=== PATIENT | male | born 1955 | race Caucasian/White ===

== ENCOUNTER → 2016-08-16 | Outpatient (CLI) | payer OTHER ==
--- NOTE | 2016-08-16 17:02 | CT ---
EXAMINATION TYPE: CT angio abd aorta wo/w con DATE OF EXAM: 08/16/2016 1:18 PM COMPARISON: 05/03/2016 INDICATION: Patient is following up on abdominal aortic aneurysm that also followed with an aneurysm into iliac artery as well DLP: 1806 mGycm, Automated exposure control for dose reduction was used. CONTRAST: 100 mL of Omnipaque 350. Study performed without Oral Contrast TECHNIQUE: Axial images were obtained from above the diaphragm to the pubic rami in the axial plane a t 5 mm thick sections. Reconstructed images are reviewed on the computer in the coronal plane. Thre e-D reconstructed images performed separately on the ventricular computer by the technologist are cee med and presented. FINDINGS: Limited CT sections are obtained the lung bases. The lung bases are clear. CT ABDOMEN: Tiny is performed for evaluation of the aorta with contrast. Aorta: Vascular calcification is present. Some some plaque is along the posterior aortic wall within the proximal portion. There is a mid abdominal aorta aneurysm with an AP dimension of 4.6 cm. Central flow-limiting somewhat smaller. This extends to the aortic bifurcation. There is a focal aneurysm of the mid to distal right common iliac artery with a transverse dimension of 2.4 cm. Some mild fusiform prominence of the left common iliac artery at the bifurcation is 1.8 cm . Liver: Normal Spleen: Normal Pancreas: Normal Adrenal glands: The adrenal glands are normal. Gallbladder: Normal Kidneys: No masses are evident. No hydronephrosis is present. No cysts are present. Inferior vena cava: Normal. Loops of bowel within the abdomen and pelvis are unremarkable. There are loops of bowel lacking oral contrast or with limited distention limiting their evaluation. IMPRESSIONS: 1. Abdominal aortic aneurysm with the greatest AP dimension of 4.6 cm. This is increased from 4.1 cm April 2016.
== END | disposition home or self-care (01) ==
LOC: RADCTMAIN 10:52
PROVIDERS: ATTEND Family Medicine
DX: I71.4 Abdominal aortic aneurysm, without rupture (principal)
CPT/HCPCS: 75635; Q9967

== ENCOUNTER → 2016-11-16 | Outpatient (CLI) | payer OTHER ==
--- NOTE | 2016-11-16 17:33 | MR ---
EXAMINATION TYPE: MR lumbar spine wo con DATE OF EXAM: 11/16/2016 COMPARISON: NONE HISTORY: Low back pain, Clarence leg pain TECHNIQUE: T1 and T2 axial and sagittal images of the lumbar spine are submitted. FINDINGS: There is no abnormal signal seen within the visualized spinal cord or paraspinal soft tissu es. At L1-2 there is moderate degenerative disc disease. No focal herniation or canal stenosis. Small eliud tebral body hemangioma L1 and L2. Neural foramina patent. Minimal central disc bulging. At L2-3 there is no disc herniation or canal stenosis. No foraminal encroachment At L3-4 there is mild degenerative disc disease. No canal stenosis or foraminal encroachment. At L4-5 there is facet arthropathy and ligamentum flavum hypertrophy. Mild bilateral foraminal encroa chment and mild effacement of thecal sac secondary to mild broad-based disc bulging. No canal stenosi s. At L5-S1 there is facet arthropathy with mild bilateral foraminal encroachment. Mild flattening of th e thecal sac anteriorly due to disc bulging. No canal stenosis. Incidental note made of Tarlov cyst a t the S2 level. There is no abdominal aortic aneurysm with extension into the iliac artery which is been previously r eported maximal dimension estimated at 4.6 cm IMPRESSION: 1. Multilevel mild to moderate degenerative disc disease and disc bulging with no evidence of canal 2. Previously reported 4.6 cm abdominal aortic aneurysm with extension into the right iliac artery
== END | disposition home or self-care (01) ==
LOC: RADMRIMAIN 16:07
PROVIDERS: ATTEND Family Medicine
DX: M51.36 Other intervertebral disc degeneration, lumbar region (principal); M51.26 Other intervertebral disc displacement, lumbar region
CPT/HCPCS: 72148

== ENCOUNTER 2017-06-01 06:58 | Day surgery (SDC) | payer OTHER ==
[2017-05-30 11:59] VITALS: BMI 30.5
[~2017-06-01 06:58] MED LIST: LACTATED RINGERS 1,000 ML IV SCH
[2017-06-01 07:17] VITALS: RESP 14; TEMP 97.7
[2017-06-01] MEDS ORDERED: PROPOFOL 10 MG/ML 20 ML VIAL IV ONE (07:35)
[2017-06-01] MEDS ORDERED: LIDOCAINE 1% INJ 10MG/ML (20 ML MDV) ONE (07:35)
--- NOTE | 2017-06-01 07:50 | P.GSHP ---
History of Present Illness H&P Date: 06/01/17 Chief Complaint: Screening colonoscopy This is a 61-year-old male referred from Dr. Luda stout. Patient presents today for screening colonoscopy. His last colonoscopy approximately 11 years ago. He denies any significant GI complaints. Past Medical History Past Medical History: Asthma, GERD/Reflux, Hyperlipidemia, Hypertension, Prostate Disorder, Sleep Apnea/CPAP/BIPAP Additional Past Medical History / Comment(s): NO CPAP. ABD ANEURYSM. History of Any Multi-Drug Resistant Organisms: None Reported Past Surgical History: Hernia Repair, Orthopedic Surgery Additional Past Surgical History / Comment(s): RIGHT ROTATOR CUFF X 2. Past Anesthesia/Blood Transfusion Reactions: No Reported Reaction Additional Past Anesthesia/Blood Transfusion Reaction / Comment(s): claustrophobic Smoking Status: Current every day smoker - Past Family History Father Family Medical History: Cancer Additional Family Medical History / Comment(s): mesothelioma Medications and Allergies Home Medications Medication Instructions Recorded Confirmed Type Finasteride [Finasteride] 5 mg PO DAILY 03/25/16 06/01/17 History Fluticasone/Vilanterol [Breo 1 puff INHALATION RT-DAILY PRN 03/25/16 06/01/17 History Ellipta 100-25 Mcg Iinhaler] Omeprazole 20 mg PO DAILY 03/25/16 06/01/17 History amLODIPine BESYLATE [Amlodipine 5 mg PO DAILY 03/25/16 06/01/17 History Besylate] buPROPion HCL [buPROPion HCL XL] 150 mg PO HS 03/25/16 06/01/17 History Clopidogrel [Plavix] 75 mg PO MOTH 05/30/17 06/01/17 History Oxybutynin Chloride [Ditropan XL] 10 mg PO HS 05/30/17 06/01/17 History Pramipexole [Mirapex] 0.25 mg PO HS 05/30/17 06/01/17 History Tamsulosin [Flomax] 0.4 mg PO HS 05/30/17 06/01/17 History Allergies Allergy/AdvReac Type Severity Reaction Status Date / Time ibuprofen [From Motrin] Allergy Rapid Verified 05/30/17 11:43 Heart Rate levofloxacin [From Levaquin] Allergy Unknown Verified 05/30/17 11:43 Surgical - Exam Vital Signs Temp Pulse Resp BP Pulse Ox 97.7 F 76 14 150/82 97 06/01/17 07:16 06/01/17 07:16 06/01/17 07:16 06/01/17 07:16 06/01/17 07:16 - General well developed, no distress - Eyes PERRL - ENT normal pinna - Neck no masses - Respiratory normal expansion - Cardiovascular Rhythm: regular - Abdomen Abdomen: soft, non tender Assessment and Plan Assessment: We'll perform screening colonoscopy.
--- NOTE | 2017-06-01 08:04 | P.OP ---
Date of Procedure: 06/01/17 Preoperative Diagnosis: Screening colonoscopy Postoperative Diagnosis: Rectal polyp Right colon polyp Anesthesia: MAC Surgeon: Nicko Gallagher Pathology: other (Rectal polyp, right colon polyp) Condition: stable Disposition: PACU Description of Procedure: Patient's placed on the endoscopy table in the lateral position. He received IV sedation. Digital rectal exam performed which revealed a external hemorrhoids. The prostate was symmetrical without nodules. Flexible colonoscope was then placed patient anus passed throughout the entire colon. The ileocecal valve was visualized. The cecum appeared normal. In the right colon there was a small sessile polyp was removed the forcep. The remainder the ascending colon, transverse colon descending colon and sigmoid colon appeared normal. Scope was then brought back the rectum and another polyp seen this removed the forcep. Scope was withdrawn for patient.
[2017-06-01 08:23] VITALS: BP 151/87; PULSE 63
--- NOTE | 2017-06-07 15:20 | CDI ---
Date: 06/07/17 CDS/Contract Administration Coordinator Name: Che Genao Phone: If you have question, contact Arti Chavez, [employer] at [phone] M-F 8:30 am to 6pm. Patient Name: Julio César Wade Admit Date: 06/01/17 Discharge Date: 06/01/17 ATTENTION: The Clinical Documentation Specialists (CDI) and [facility] Coding Staff appreciate your assistance in clarifying documentation. Please respond to the clarification below the line at the bottom and electronically sign. The CDI & [facility] Coding staff will review the response and follow-up if needed. Please note: Queries are made part of the Legal Health Record. If you have any questions, please contact the author of this message via ITS or call the [employer]. Dr. Gallagher, Please provide clarification as to whether the polyps was removed with cold or hot forceps. Thank you for your assistance. Cold forcep MTDD
== END 2017-06-01 08:44 | disposition home or self-care (01) ==
LOC: ORWHC2ENDO 06:58
PROVIDERS: ATTEND Surgery
DX: Z12.11 Encounter for screening for malignant neoplasm of colon (principal); D12.2 Benign neoplasm of ascending colon; K62.1 Rectal polyp; K21.9 Gastro-esophageal reflux disease without esophagitis; F17.200 Nicotine dependence, unspecified, uncomplicated; E78.5 Hyperlipidemia, unspecified; I10 Essential (primary) hypertension; G47.30 Sleep apnea, unspecified; N42.9 Disorder of prostate, unspecified; J44.9 Chronic obstructive pulmonary disease, unspecified; I71.4 Abdominal aortic aneurysm, without rupture; Z79.02 Long term (current) use of antithrombotics/antiplatelets; Z79.899 Other long term (current) drug therapy; Z88.6 Allergy status to analgesic agent; Z88.1 Allergy status to other antibiotic agents
CPT/HCPCS: 88305; 45380; J2001; J2704

== ENCOUNTER → 2018-03-06 | Outpatient (CLI) | payer BC ==
--- NOTE | 2018-03-06 15:14 | CT ---
EXAMINATION TYPE: CT angio abd aorta w/Runoff DATE OF EXAM: 03/06/2018 COMPARISON: CTA August 16, 2016 HISTORY: abdominal aortic aneurysm CT DLP: 1332 mGycm, Automated Exposure Control for Dose Reduction was Utilized. CONTRAST: CTA scan of the abdomen and pelvis is performed without oral and with IV Contrast, patient injected w ith 100mL mL of Isovue 370. Three-D reconstructed images are created on independent workstation and r eviewed FINDINGS: VASCULAR: There is enlarging aneurysm of the infrarenal abdominal aorta without common iliac artery extension measuring roughly just over 10 cm in length coronal image 61. Aneurysm measures up to 5.1 c m AP diameter axial image 49 and 5.1 cm transversely just superior to this axial image 45. Largest an eurysm I obtain prior study is 4.4 cm. There is increasing mural thrombus or noncalcified plaque now causing greater than 50% occlusion of the aneurysm. There is persistent patency of the JEAN through t he noncalcified plaque axial image 49. There is persistent fairly moderate plaque in the SMA not caus ing greater than 50% stenosis. Focal severe plaque at celiac axis origin appears to cause stenosis ju st over 50% sagittal image 90. There is moderate plaque at renal artery origin, focal vertical dissec tion proximal right renal artery coronal image 71 is not changed from prior study as there is vertica l hypodensity seen. There is moderate to severe mixed plaque in the common iliac arteries bilaterally. There is aneurysm the distal right common iliac artery measuring up to 2.7 cm in size axial image 63 increased from pr ior. Moderate to severe noncalcified plaque is noted. There is satisfactory bifurcation into internal /external iliac arteries bilaterally with severe calcified plaque in the internal carotid arteries bi laterally without significant stenosis seen. There is more mild calcified plaque in axial iliac arter ies. There is more moderate calcified plaque at common femoral artery bilaterally. There is bifurcati on into superficial and deep femoral arteries with mild calcified plaque. No significant stenosis is seen in either groin. LUNG BASES: No significant abnormality is appreciated. LIVER/GB: Stable nonspecific subcentimeter hypodense lesion right hepatic lobe near gallbladder axial image 26 is favored benign. PANCREAS: No significant abnormality is seen. SPLEEN: No significant abnormality is seen. ADRENALS: No significant abnormality is seen. KIDNEYS: No significant abnormality is seen. BOWEL: Normal-appearing appendix is incidentally seen from cecum. PROSTATE/SEMINAL VESICLES: Left central calcifications are seen in prostate gland upper limits of nor mal in size. LYMPH NODES: No greater than 1cm abdominal or pelvic lymph nodes are appreciated. OSSEOUS STRUCTURES: There is mild to moderate multilevel spurring in the thoracic spine. OTHER: No significant additional abnormality is seen. IMPRESSION: Enlarging infrarenal abdominal aortic aneurysm measuring up to 5.1 cm on current study. I ncreasing intraluminal mural thrombus noted. Significant stenosis at celiac axis origin just over 50% is felt present not significantly changed from prior. Severe focal calcified plaque or focal dissect ion proximal right renal artery is redemonstrated. 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 Consider stent graft placement.
== END | disposition home or self-care (01) ==
LOC: RADCTMAIN 13:32
PROVIDERS: ATTEND Surgery
DX: I71.4 Abdominal aortic aneurysm, without rupture (principal); I72.3 Aneurysm of iliac artery
CPT/HCPCS: 75635

== ENCOUNTER → 2018-05-07 | Outpatient (CLI) | payer BC ==
--- NOTE | 2018-05-07 14:48 | CT ---
EXAMINATION TYPE: CT angio abdomen pelvis DATE OF EXAM: 05/07/2018 COMPARISON: 03/06/2018 HISTORY: 62-year-old male Follow up stent placement. TECHNIQUE: Contiguous axial scanning of the abdomen and pelvis before and after administration of 100 ml Isovue 370 IV contrast. Additional delayed images through the stent graft with coronal/sagittal MIP reconstructions performed. 3-D reconstructions generated on a dedicated independent workstation. CT DLP: 2758 mGycm Automated exposure control for dose reduction was used. FINDINGS: Heart normal size without pericardial effusion. Strandy areas of atelectasis at the lung bases withou t pleural effusion. Subcentimeter hypodensity inferior mid left liver lobe unchanged and too small for accurate CT charac terization, likely cyst. Gallbladder, adrenal glands, kidneys, spleen, and pancreas show no gross abnormality. Redemonstrated moderate atherosclerotic narrowing at the origin of the celiac axis. There is a replaced common hepatic artery from the SMA. Stable focal linear density within the proximal right renal artery, refer to coronal series 12 image 79. Interval placement of aortobiiliac stent graft. There is extension on the right to include the right internal iliac artery. [place] sac currently measures 5.0 x 4.9 cm versus 5.1 x 5.0 cm, previously. The [place] sac for the stented distal right common carotid artery measures 2.2 cm versus 2.7 cm, prev iously. Stented distal left common iliac artery measures 2.0 cm, unchanged. No abnormal attenuation of contrast seen within the [place] sac. No dilated small bowel, free fluid, or free air No mesenteric or retroperitoneal lymphadenopathy. Normal appendix. Mild stool in the right side of th e abdomen and in the distal sigmoid and rectum. Mild diverticular change along the lower descending colon. Bladder partially distended. Prostatic calcifications. No abnormal fluid collection the pelvis or pel matthew lymphadenopathy seen. Bones: Subarticular sclerosis at the SI joints suggesting underlying degenerative change. No osseous destructive process. IMPRESSION: 1. INTERVAL AORTOBIILIAC STENT GRAFT PLACEMENT. ON THE RIGHT, STENT GRAFT EXTENDS TO INCLUDE THE RIGH T INTERNAL ILIAC ARTERY. 2. [place] SAC IS STABLE TO SLIGHTLY SMALLER AT 5.0 X 4.9 CM (VERSUS 5.1 X 5.0 CM, PREVIOUSLY). NO KHURRAM DENCE FOR ENDOLEAK. 2. THE STENTED RIGHT COMMON ILIAC ARTERY [place] SAC IS SMALLER AT 2.2 CM VERSUS 2.7 CM, PREVIOUSLY. 3. 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 4. STABLE LINEAR FILLING DEFECT INVOLVING THE PROXIMAL RIGHT RENAL ARTERY WHICH COULD REPRESENT A SMA LL FOCAL DISSECTION OR WEB RELATING TO PRIOR CLOT.
== END | disposition home or self-care (01) ==
LOC: RADCTMAIN 11:02
PROVIDERS: ATTEND Surgery
DX: I77.4 Celiac artery compression syndrome (principal); I77.89 Other specified disorders of arteries and arterioles; Z95.828 Presence of other vascular implants and grafts
CPT/HCPCS: 74174; Q9967

== ENCOUNTER → 2019-04-18 | Outpatient (CLI) | payer BC ==
[~2019-04-18] MED LIST changes: -LACTATED RINGERS 1,000 ML IV SCH; +REGADENOSON 0.4 MG/5 ML SYRINGE IV ONE
--- NOTE | 2019-04-18 12:36 | NM ---
EXAMINATION TYPE: NM stress lexiscan cardiolite DATE OF EXAM: 04/18/2019 COMPARISON: NONE HISTORY: Chest pain TECHNIQUE: After the intravenous administration of 10.06 mCi Tc 99m Sestamibi - Cardiolite resting S PECT images acquired 45 minutes post injection. The patient received 0.4mg Lexiscan, 23.9 mCi Tc 99m Sestamibi - Stress images obtained [address] injection FINDINGS: Review of stress and rest SPECT images demonstrates mild decreased rate pharmaceutical uptake along t he inferior wall left ventricle towards the base of the heart at stress as compared to rest images. Gated analysis shows normal wall motion with an estimated left ventricular ejection fraction of 55 %. IMPRESSION: Pharmacologically induced left ventricular myocardial ischemia. A Yellow level critical message alert has been initiated for Luda Garcia DO via the [employer] Critical Results System on 04/18/2019 12:33 PM. This message alert has been sent to Luda Garcia DO via the preferences provided by the clinician for the receipt of Radiology Critical Findings. PrintToPeer e ID [id number].
--- NOTE | 2019-04-18 13:29 | EST ---
EXERCISE STRESS DATE OF SERVICE: April 18, 2019 AGE: 63 SEX: Male HT: 72" WT: 205 pounds PROTOCOL: Lexiscan Cardiolite STAGE: DURATION OF EXERCISE: HEART RATE REST: 64 BLOOD PRESSURE REST: 129/77 MAXIMUM HEART RATE ACHIEVED: 100 MAXIMUM BLOOD PRESSURE: 133/81 85% MPHR: 100% MPHR: METS: INDICATIONS: Chest pain. CLINICAL INFORMATION: STRESS DATA: Heart rate 64, pressure is 129/77 mmHg. Baseline EKG showed sinus mechanism. A 0.4 mg of Lexiscan given over 15 seconds per protocol. Max heart rate was 100 beats per minute. Maximum pressure was 133/81 mmHg. Clinically the patient did not have any symptoms of chest pain or chest discomfort and the EKG did not show any significant ST or T-wave abnormalities concerning for ischemia. CONCLUSION: 1. Nondiagnostic electrocardiogram stress testing in response to Lexiscan. 2. Please follow up on the Cardiolite portion on separate report from radiology department. MMODL / IJN: [id number] /
== END | disposition home or self-care (01) ==
LOC: RADNMMAIN 07:58
PROVIDERS: ATTEND Family Medicine
DX: I20.9 Angina pectoris, unspecified (principal); I25.9 Chronic ischemic heart disease, unspecified; R07.9 Chest pain, unspecified
CPT/HCPCS: 93017; 78452; A9500; J2785

== ENCOUNTER → 2019-07-06 | Outpatient (CLI) | payer BC ==
--- NOTE | 2019-07-07 12:30 | CTL ---
EXAMINATION TYPE: CT Low Dose Lung DATE OF EXAM ORDERED: 07/06/2019 HISTORY: Personal history tobacco use. Lung cancer screening CT DLP: 131.[address] CTDI: 3.3 mGy Automated exposure control for dose reduction was used. SCREENING VISIT: 1 COMPARISON: CT chest 01/25/2012 TECHNIQUE: Low dose computed tomography scan was performed through the chest at 1 mm thick sections a nd reconstructed images in the coronal plane at [address] DIAGNOSTIC QUALITY: Satisfactory FINDINGS: LUNG NODULES: None. LUNGS: COPD: Severity: Mild Fibrosis: Severity: None Lymph nodes: None Other findings: Mild central bronchiectasis RIGHT PLEURAL SPACE: Effusion: None Calcification: None Thickening: None Pneumothorax: None LEFT PLEURAL SPACE: Effusion: None Calcification: None Thickening: None Pneumothorax: None HEART: Heart Size: Small Coronary calcification: Extensive Pericardial effusion: None OTHER FINDINGS: Upper abdomen: Unremarkable Bony thorax: There is spondylosis present Supraclavicular region: Unremarkable Other: IMPRESSION: Negative FOLLOW UP CT CHEST RECOMMENDATION: [address] LUNG RAD: 1
== END | disposition home or self-care (01) ==
LOC: RADCTMAIN 07:42
PROVIDERS: ATTEND Family Medicine
DX: Z12.2 Encounter for screening for malignant neoplasm of respiratory organs (principal); F17.210 Nicotine dependence, cigarettes, uncomplicated

== ENCOUNTER → 2020-12-04 | Outpatient (CLI) | payer BC ==
--- NOTE | 2020-12-04 11:46 | FL ---
EXAMINATION TYPE: FL barium swallow DATE OF EXAM: 12/04/2020 CLINICAL HISTORY: Dysphagia, additional history of Parkinson's TECHNIQUE: A double contrast esophagram is performed utilizing air and barium. A total of 43 second s of fluoroscopic time was utilized during procedure and 49 images obtained. COMPARISON: None FINDINGS: The esophagus shows normal motility and emptying into the stomach. No evidence of hiatal h ernia or stricture noted. No significant gastroesophageal reflux was seen during real time performanc e of this study. IMPRESSION: No significant abnormality is seen to account for patient's symptoms.
== END | disposition home or self-care (01) ==
LOC: RADUSWWP 10:48
PROVIDERS: ATTEND Family Medicine
DX: R13.10 Dysphagia, unspecified (principal)
CPT/HCPCS: 74220

== ENCOUNTER 2022-03-31 10:52 | Inpatient (IN) | payer BC, MEDICARE ==
[2022-03-31] MEDS ORDERED: NITROGLYCERIN OINT 1 INCH/GM PACKET TOPICAL STA (11:14)
[2022-03-31] MEDS ORDERED: ASPIRIN 81 MG PO STA (11:14)
--- NOTE | 2022-03-31 11:17 | ED ---
General Adult HPI - General Chief complaint: Chest Pain Stated complaint: Chest Pain,SOB Time Seen by Provider: 03/31/22 11:00 Source: patient, RN notes reviewed, old records reviewed Mode of arrival: ambulatory Limitations: no limitations - History of Present Illness Initial comments: This is a 66-year-old male presents emergency Department with a past medical history significant for diabetes hypertension high cholesterol and a smoking history however he did quit in September. Patient comes in today because for about the last 2 hours he has been having chest pain does not radiate anywhere. Patient describes the pain as a pressure or heaviness. Patient states that he also is very short of breath which is his main complaint. Patient states he's h ad no nausea or vomiting but he has had diarrhea for the last 3 days. Patient denies any abdominal pain. Patient denies any diaphoretic episodes. Patient denies any previous history of heart attack or stent placement. Patient denies any swelling to the legs or calf tenderness. Patient denies any recent fever chills or cough. - Related Data Home Medications Medication Instructions Recorded Confirmed buPROPion HCL [buPROPion HCL XL] 150 mg PO DAILY 03/25/16 03/31/22 Clopidogrel [Plavix] 75 mg PO MOTH 05/30/17 03/31/22 Oxybutynin Chloride [Ditropan XL] 10 mg PO DAILY 05/30/17 03/31/22 Tamsulosin [Flomax] 0.4 mg PO DAILY 05/30/17 03/31/22 Pantoprazole Sodium [Protonix] 40 mg PO BID 03/31/22 03/31/22 Propranolol HCl [Propranolol HCl 80 mg PO DAILY 03/31/22 03/31/22 ER] lisinopriL [Prinivil] 20 mg PO BID 03/31/22 03/31/22 metFORMIN HCL 500 mg PO HS 03/31/22 03/31/22 rOPINIRole HCL [Requip XL] 2 mg PO HS 03/31/22 03/31/22 Allergies Allergy/AdvReac Type Severity Reaction Status Date / Time levofloxacin [From Levaquin] Allergy Rash/Hives Verified 03/31/22 13:13 ibuprofen [From Motrin] AdvReac Rapid Verified 03/31/22 13:13 Heart Rate Review of Systems ROS Statement: Those systems with pertinent positive or pertinent negative responses have been documented in the HPI. ROS Other: All systems not noted in ROS Statement are negative. Past Medical History Past Medical History: Asthma, GERD/Reflux, Hyperlipidemia, Hypertension, Prostate Disorder, Sleep Apnea/CPAP/BIPAP Additional Past Medical History / Comment(s): NO CPAP. ABD ANEURYSM. History of Any Multi-Drug Resistant Organisms: None Reported Past Surgical History: Hernia Repair, Orthopedic Surgery Additional Past Surgical History / Comment(s): RIGHT ROTATOR CUFF X 2. Deep brain stimulator, Cardiac stents, Past Anesthesia/Blood Transfusion Reactions: No Reported Reaction Additional Past Anesthesia/Blood Transfusion Reaction / Comment(s): claustrophobic Past Psychological History: No Psychological Hx Reported Smoking Status: Former smoker Past Alcohol Use History: None Reported Past Drug Use History: None Reported - Past Family History Father Family Medical History: Cancer Additional Family Medical History / Comment(s): mesothelioma General Exam - General Exam Comments Initial Comments: GENERAL: Patient is well-developed and well-nourished. Patient is nontoxic and well- hydrated and is in mild distress. ENT: Neck is soft and supple. No significant lymphadenopathy is noted. Oropharynx is clear. Moist mucous membranes. Neck has full range of motion without eliciting any pain. EYES: The sclera were anicteric and conjunctiva were pink and moist. Extraocular movements were intact and pupils were equal round and reactive to light. Eyelids were unremarkable. PULMONARY: Unlabored respirations. Good breath sounds bilaterally. No audible rales rhonchi or wheezing was noted. CARDIOVASCULAR: There is a regular rate and rhythm without any murmurs gallops or rubs. ABDOMEN: Soft and nontender with normal bowel sounds. SKIN: Skin is clear with no lesions or rashes and otherwise unremarkable. NEUROLOGIC: Patient is alert and oriented x3. Cranial nerves II through XII are grossly intact. Motor and sensory are also intact. Normal speech, volume and content. Symmetrical smile. MUSCULOSKELETAL: Normal extremities with adequate strength and full range of motion. LYMPHATICS: No significant lymphadenopathy is noted PSYCHIATRIC: Normal psychiatric evaluation. Limitations: no limitations Course Vital Signs 03/31/22 03/31/22 03/31/22 10:56 11:35 12:00 Temperature 97.8 F Pulse Rate 9 L 80 73 Respiratory 18 18 Rate Blood Pressure 159/100 176/97 155/96 O2 Sat by Pulse 97 96 97 Oximetry 03/31/22 13:00 Temperature Pulse Rate 72 Respiratory Rate Blood Pressure 153/84 O2 Sat by Pulse 97 Oximetry Medical Decision Making - Medical Decision Making EKG shows sinus rhythm at 83 bpm MT interval 260 QRS is 145 Q-T intervals 393 QTC is 433. Patient's EKG has baseline noise secondary to the patient's stimulator. Chest x-ray shows no acute normalities. New. Patient's magnesium was 1.3 so I replaced with 2 g of magnesium. I spoke with Dr. Workman's about agreed to admit the patient admitted the patient I consult cardiology. - Lab Data Result diagrams: 03/31/22 11:25 03/31/22 11:25 Lab Results 03/31/22 03/31/22 03/31/22 Range/Units 11:25 11:25 11:25 WBC 7.1 (3.8-10.6) k/uL RBC 4.00 L (4.30-5.90) m/uL Hgb 12.8 L (13.0-17.5) gm/dL Hct 35.9 L (39.0-53.0) % MCV 89.7 (80.0-100.0) fL MCH 32.0 (25.0-35.0) pg MCHC 35.7 (31.0-37.0) g/dL RDW 13.2 (11.5-15.5) % Plt Count 184 (150-450) k/uL MPV 7.9 Neutrophils % 67 % Lymphocytes % 19 % Monocytes % 7 % Eosinophils % 4 % Basophils % 1 % Neutrophils # 4.7 (1.3-7.7) k/uL Lymphocytes # 1.4 (1.0-4.8) k/uL Monocytes # 0.5 (0-1.0) k/uL Eosinophils # 0.3 (0-0.7) k/uL Basophils # 0.1 (0-0.2) k/uL PT 11.0 (9.0-12.0) sec INR 1.0 (<1.2) APTT 20.8 L (22.0-30.0) sec Sodium 139 (137-145) mmol/L Potassium 4.2 (3.5-5.1) mmol/L Chloride 103 (98-107) mmol/L Carbon Dioxide 23 (22-30) mmol/L Anion Gap 13 mmol/L BUN 24 H (9-20) mg/dL Creatinine 1.21 (0.66-1.25) mg/dL Est GFR (CKD-EPI)AfAm 72 (>60 ml/min/1.73 sqM) Est GFR (CKD-EPI)NonAf 63 (>60 ml/min/1.73 sqM) Glucose 260 H (74-99) mg/dL Calcium 9.1 (8.4-10.2) mg/dL Magnesium 1.3 L (1.6-2.3) mg/dL Total Bilirubin 0.6 (0.2-1.3) mg/dL AST 25 (17-59) U/L ALT 30 (4-49) U/L Alkaline Phosphatase 70 (38-126) U/L Troponin I (0.000-0.034) ng/mL NT-Pro-B Natriuret Pep pg/mL Total Protein 6.5 (6.3-8.2) g/dL Albumin 4.1 (3.5-5.0) g/dL 03/31/22 03/31/22 Range/Units 11:25 11:25 WBC (3.8-10.6) k/uL RBC (4.30-5.90) m/uL Hgb (13.0-17.5) gm/dL Hct (39.0-53.0) % MCV (80.0-100.0) fL MCH (25.0-35.0) pg MCHC (31.0-37.0) g/dL RDW (11.5-15.5) % Plt Count (150-450) k/uL MPV Neutrophils % % Lymphocytes % % Monocytes % % Eosinophils % % Basophils % % Neutrophils # (1.3-7.7) k/uL Lymphocytes # (1.0-4.8) k/uL Monocytes # (0-1.0) k/uL Eosinophils # (0-0.7) k/uL Basophils # (0-0.2) k/uL PT (9.0-12.0) sec INR (<1.2) APTT (22.0-30.0) sec Sodium (137-145) mmol/L Potassium (3.5-5.1) mmol/L Chloride (98-107) mmol/L Carbon Dioxide (22-30) mmol/L Anion Gap mmol/L BUN (9-20) mg/dL Creatinine (0.66-1.25) mg/dL Est GFR (CKD-EPI)AfAm (>60 ml/min/1.73 sqM) Est GFR (CKD-EPI)NonAf (>60 ml/min/1.73 sqM) Glucose (74-99) mg/dL Calcium (8.4-10.2) mg/dL Magnesium (1.6-2.3) mg/dL Total Bilirubin (0.2-1.3) mg/dL AST (17-59) U/L ALT (4-49) U/L Alkaline Phosphatase (38-126) U/L Troponin I <0.012 (0.000-0.034) ng/mL NT-Pro-B Natriuret Pep 246 pg/mL Total Protein (6.3-8.2) g/dL Albumin (3.5-5.0) g/dL Disposition Clinical Impression: Chest pain, Hypomagnesemia Disposition: ADMITTED IP TO THIS [facility] Referrals: Luda Garcia DO [Primary Care Provider] - 1-2 days Time of Disposition: 14:01
[2022-03-31 11:41] LABS: Basophils # (A) 0.1 k/uL (0-0.2); Basophils % (A) 1 %; Eosinophils # (A) 0.3 k/uL (0-0.7); Eosinophils % (A) 4 %; HCT 35.9 % (39.0-53.0); HGB 12.8 gm/dL (13.0-17.5); Lymphocytes # (A) 1.4 k/uL (1.0-4.8); Lymphocytes % (A) 19 %; MCHC 35.7 g/dL (31.0-37.0); MCV 89.7 fL (80.0-100.0); Mean Platelet Volume 7.9; Monocytes # (A) 0.5 k/uL (0-1.0); Monocytes % (A) 7 %; Neutrophils # (A) 4.7 k/uL (1.3-7.7); Neutrophils % (A) 67 %; Platelet Count 184 k/uL (150-450); RDW 13.2 % (11.5-15.5); WBC 7.1 k/uL (3.8-10.6)
[2022-03-31 11:51] LABS: Albumin 4.1 g/dL (3.5-5.0); Calcium 9.1 mg/dL (8.4-10.2); Magnesium 1.3 mg/dL (1.6-2.3); Potassium 4.2 mmol/L (3.5-5.1); Total Bilirubin 0.6 mg/dL (0.2-1.3); Total Protein 6.5 g/dL (6.3-8.2)
[2022-03-31 12:04] LABS: Partial Thromboplastin Time 20.8 sec (22.0-30.0)
--- NOTE | 2022-03-31 12:52 | XR ---
EXAMINATION TYPE: XR chest 2V DATE OF EXAM: 03/31/2022 COMPARISON: Low-dose lung screening CT July 06, 2019 HISTORY: Chest pain. TECHNIQUE: Frontal and lateral views of the chest are obtained. FINDINGS: There is mild chronic parenchymal changes bilaterally without suspicious new focal air spa ce opacity, pleural effusion, or pneumothorax seen. The cardiac silhouette size is stable and within normal limits. New anterior left neck stimulator device is partially imaged. The osseous structure s are intact. IMPRESSION: No acute cardiopulmonary process.
[2022-03-31] MEDS ORDERED: ACETAMINOPHEN TAB 500 MG TAB PO STA (13:54)
[2022-03-31] MEDS: MAGNESIUM SULFATE-D5W PMX 1 GM in DEXTROSE/WATER 1 100ML.BAG IVPB SCH ×2 (14:15→15:10)
[2022-03-31] MEDS ORDERED: NITROGLYCERIN SL TABS 0.4 MG TAB SUBLINGUAL PRN (14:22)
[2022-03-31 17:00] LABS: Glucose,Whole Blood 102 mg/dL (70-110)
[2022-03-31] MEDS: NITROGLYCERIN OINT 1 INCH/GM PACKET TOPICAL SCH (17:14)
[2022-03-31] MEDS: PANTOPRAZOLE 40 MG TABLET PO SCH (17:14)
[2022-03-31] MEDS: INSULIN ASPART (NovoLOG) 100 UNIT/ML VIAL SQ SCH ×2 (17:14→19:51)
[2022-03-31 19:50] LABS: Glucose,Whole Blood 138 mg/dL (70-110)
[2022-03-31] MEDS: ATORVASTATIN 40 MG TAB PO SCH (20:49)
[2022-03-31] MEDS: lisinopriL 20 MG TAB PO SCH (20:49)
[2022-03-31] MEDS: ACETAMINOPHEN TAB 325 MG TAB PO PRN (20:50)
[2022-04-01] MEDS: NITROGLYCERIN OINT 1 INCH/GM PACKET TOPICAL SCH ×2 (00:03→07:01)
[2022-04-01] MEDS: ACETAMINOPHEN TAB 325 MG TAB PO PRN ×2 (05:14→12:32)
[2022-04-01 06:17] LABS: Glucose,Whole Blood 121 mg/dL (70-110)
[2022-04-01] MEDS: PANTOPRAZOLE 40 MG TABLET PO SCH ×2 (06:34→16:31)
[2022-04-01] MEDS: INSULIN ASPART (NovoLOG) 100 UNIT/ML VIAL SQ SCH ×4 (06:35→20:40)
[2022-04-01 07:00] LABS: HCT 33.2 % (39.0-53.0); HGB 11.7 gm/dL (13.0-17.5); MCHC 35.3 g/dL (31.0-37.0); MCV 90.5 fL (80.0-100.0); Mean Platelet Volume 8.9; Platelet Count 180 k/uL (150-450); RBC 3.66 m/uL (4.30-5.90); WBC 7.9 k/uL (3.8-10.6)
[2022-04-01 07:10] LABS: African American GFR (CKD) 63 (>60 ml/min/1.73 sqM); Anion Gap 9 mmol/L; Blood Urea Nitrogen 26 mg/dL (9-20); Calcium 8.5 mg/dL (8.4-10.2); Carbon Dioxide 25 mmol/L (22-30); Chloride 103 mmol/L (98-107); Glucose 125 mg/dL (74-99); Non-African American GFR(CKD) 54 (>60 ml/min/1.73 sqM); Potassium 4.3 mmol/L (3.5-5.1); Sodium 137 mmol/L (137-145)
[2022-04-01] MEDS ORDERED: ASPIRIN 325 MG TAB PO SCH (09:00)
[2022-04-01] MEDS ORDERED: REGADENOSON 0.4 MG/5 ML SYRINGE IV PRN (09:27)
[2022-04-01] MEDS ORDERED: AMINOPHYLLINE 500 MG/20 ML VIAL IV PRN (09:27)
[2022-04-01] MEDS ORDERED: CAFFEINE CITRATE 60 MG/3 ML VIAL IV PRN (09:27)
[2022-04-01] MEDS: buPROPion XL 150 MG TAB.ER.24H PO SCH (09:40)
[2022-04-01] MEDS: ASPIRIN 81 MG PO SCH (09:40)
[2022-04-01] MEDS: TAMSULOSIN 0.4 MG CAP.ER.24H PO SCH (09:40)
[2022-04-01] MEDS: CLOPIDOGREL 75 MG TAB PO SCH (09:41)
[2022-04-01] MEDS: OXYBUTYNIN 10 MG TAB.ER.24 PO SCH (09:41)
[2022-04-01] MEDS: lisinopriL 20 MG TAB PO SCH ×2 (09:41→21:03)
[2022-04-01] MEDS: PROPRANOLOL LA 80 MG CAP.SA.24H PO SCH (09:42)
[2022-04-01] MEDS: ISOSORBIDE MONONITRATE ER 30 MG TAB.ER.24H PO SCH (09:49)
--- NOTE | 2022-04-01 10:49 | P.CRDCN ---
History of Present Illness History of present illness: HISTORY OF PRESENT ILLNESS: This is a 66-year-old male with a past medical history significant for hypertension, hyperlipidemia, abdominal aortic aneurysm status post surgical intervention, and bilateral iliac artery stenting, and former nicotine dependence who quit smoking in September 2021. Patient follows in the office with Dr. Vazquez. We have been asked to see the patient in consultation for chest pain. Patient examined at the bedside. Patient states yesterday he was sitting in the chair at home and he began to have a very heavy pressure in his chest. He also reports feeling short of breath. He denied any radiation of the pain. He denied any diaphoresis. Denied any nausea or vomiting. He states he took a sublingual nitro which helped relieve his pain. He also reports he has been short of breath for the past 3 weeks with minimal exertion. He states he went to see his primary care doctor yesterday who sent him to the emergency room for further evaluation. The patient denies any further episodes of chest pain since coming to the hospital. * EKG reveals sinus mechanism with no signs of acute ischemia. Left axis deviation. Right bundle branch block. * Chest xray Plavix 75 mg daily, Lipitor 40 mg at night, propanolol 80 mg daily, lisinopril 20 mg twice a day * Laboratory data: WBC 7.9. Hemoglobin 11.7. Platelet count 180. Sodium 137. Potassium 4.3. BUN 26. Creatinine 1.36. Troponin negative 3. * Current home cardiac medications include Plavix 75 mg daily, Lipitor 40 mg at night, propanolol 80 mg daily, lisinopril 20 mg twice a day * Patient underwent Lexiscan stress test in September 2020 which was negative for ischemia REVIEW OF SYSTEMS: At the time of my exam: CONSTITUTIONAL: Denies fever or chills. HEENT: Denies blurred vision, vision changes, or eye pain. Denies hemoptysis CARDIOVASCULAR: Denies chest pain. Denies orthopnea. Denies PND. Denies palpitations RESPIRATORY: Denies shortness of breath. GASTROINTESTINAL: Denies abdominal pain. Denies nausea or vomiting. HEMATOLOGIC: Denies bleeding disorders. GENITOURINARY: Denies any blood in urine. SKIN: Denies pruitis. Denies rash. PHYSICAL EXAM: VITAL SIGNS: Reviewed. GENERAL: Well-developed in no acute distress. HEENT: Head is normocephalic. Pupils are equal, round. Sclerae anicteric. Mucous membranes of the mouth are moist. Neck supple. No JVD or thyromegaly LUNGS: Respirations even and unlabored. Lungs essentially clear to auscultation bilaterally. HEART: Regular rate and rhythm. S1 and S2 heard. ABDOMEN: Soft. Nondistended. Nontender. EXTREMITIES: Normal range of motion. No clubbing or cyanosis. Peripheral pulses intact. No lower extremity edema NEUROLOGIC: Awake and alert. Oriented x 3. ASSESSMENT: Chest pain, troponins negative 3 Hypertension Hyperlipidemia Abdominal aortic aneurysm status post surgical intervention Bilateral iliac artery stenting Coronary calcifications visualized on previous computed tomography scan Former nicotine dependence PLAN: Obtain 2-D echo to assess cardiac structure and function Resume home cardiac medications Patient to undergo Lexiscan stress test today Further recommendations pending patient's course Nurse practitioner note has been reviewed by physician. Signing provider agrees with the documented findings, assessment, and plan of care. Past Medical History Past Medical History: Asthma, GERD/Reflux, Hyperlipidemia, Hypertension, Pr ostate Disorder, Sleep Apnea/CPAP/BIPAP Additional Past Medical History / Comment(s): ABD ANEURYSM. History of Any Multi-Drug Resistant Organisms: None Reported Past Surgical History: Hernia Repair, Orthopedic Surgery Additional Past Surgical History / Comment(s): RIGHT ROTATOR CUFF X 2. Deep brain stimulator, aaa stent, and vascular stents Past Anesthesia/Blood Transfusion Reactions: No Reported Reaction Additional Past Anesthesia/Blood Transfusion Reaction / Comment(s): claustrophobic Past Psychological History: No Psychological Hx Reported Smoking Status: Former smoker Past Alcohol Use History: None Reported Additional Past Alcohol Use History / Comment(s): HAS SMOKED FOR 47 YRS, 1/2 PPD. Past Drug Use History: None Reported - Past Family History Father Family Medical History: Cancer Additional Family Medical History / Comment(s): mesothelioma Medications and Allergies Home Medications Medication Instructions Recorded Confirmed Type buPROPion HCL [buPROPion HCL XL] 150 mg PO DAILY 03/25/16 03/31/22 History Clopidogrel [Plavix] 75 mg PO DAILY 05/30/17 03/31/22 History Oxybutynin Chloride [Ditropan XL] 10 mg PO DAILY 05/30/17 03/31/22 History Tamsulosin [Flomax] 0.4 mg PO DAILY 05/30/17 03/31/22 History Atorvastatin [Lipitor] 40 mg PO HS 03/31/22 03/31/22 History Pantoprazole Sodium [Protonix] 40 mg PO BID 03/31/22 03/31/22 History Propranolol HCl [Propranolol HCl 80 mg PO DAILY 03/31/22 03/31/22 History ER] lisinopriL [Prinivil] 20 mg PO BID 03/31/22 03/31/22 History metFORMIN HCL 500 mg PO HS 03/31/22 03/31/22 History rOPINIRole HCL [Requip XL] 2 mg PO HS 03/31/22 03/31/22 History Allergies Allergy/AdvReac Type Severity Reaction Status Date / Time levofloxacin [From Levaquin] Allergy Rash/Hives Verified 03/31/22 13:13 ibuprofen [From Motrin] AdvReac Rapid Verified 03/31/22 13:13 Heart Rate Physical Exam Vitals: Vital Signs Temp Pulse Pulse Resp BP BP Pulse Ox 04/01/22 07:53 97.7 F 73 16 159/87 95 04/01/22 04:00 97.1 F L 65 158/81 96 04/01/22 01:10 18 04/01/22 00:06 97.6 F 71 16 124/57 95 03/31/22 20:02 97.5 F L 80 16 142/85 97 03/31/22 20:00 18 03/31/22 17:00 162/92 03/31/22 16:30 97.7 F 66 17 174/96 97 03/31/22 15:51 70 18 134/81 97 03/31/22 15:00 65 18 141/76 97 03/31/22 14:00 69 18 153/91 97 03/31/22 13:00 72 153/84 97 03/31/22 12:00 73 155/96 97 03/31/22 11:35 80 18 176/97 96 03/31/22 10:56 97.8 F 9 L 18 159/100 97 Intake and Output 03/31/22 04/01/22 04/01/22 22:59 06:59 14:59 Intake Total 236 Balance 236 Intake: Oral 236 Other: Voiding Method Toilet Toilet # Voids 1 2 Weight 106.594 kg Results 04/01/22 06:44 04/01/22 06:44 Cardiac Enzymes 03/31/22 03/31/22 03/31/22 Range/Units 11:25 11:25 15:10 AST 25 (17-59) U/L Troponin I <0.012 <0.012 (0.000-0.034) ng/mL 03/31/22 Range/Units 18:19 AST (17-59) U/L Troponin I <0.012 (0.000-0.034) ng/mL Coagulation 03/31/22 Range/Units 11:25 PT 11.0 (9.0-12.0) sec APTT 20.8 L (22.0-30.0) sec CBC 03/31/22 04/01/22 Range/Units 11:25 06:44 WBC 7.1 7.9 (3.8-10.6) k/uL RBC 4.00 L 3.66 L (4.30-5.90) m/uL Hgb 12.8 L 11.7 L (13.0-17.5) gm/dL Hct 35.9 L 33.2 L (39.0-53.0) % Plt Count 184 180 (150-450) k/uL Comprehensive Metabolic Panel 03/31/22 04/01/22 Range/Units 11:25 06:44 Sodium 139 137 (137-145) mmol/L Potassium 4.2 4.3 (3.5-5.1) mmol/L Chloride 103 103 (98-107) mmol/L Carbon Dioxide 23 25 (22-30) mmol/L BUN 24 H 26 H (9-20) mg/dL Creatinine 1.21 1.36 H (0.66-1.25) mg/dL Glucose 260 H 125 H (74-99) mg/dL Calcium 9.1 8.5 (8.4-10.2) mg/dL AST 25 (17-59) U/L ALT 30 (4-49) U/L Alkaline Phosphatase 70 (38-126) U/L Total Protein 6.5 (6.3-8.2) g/dL Albumin 4.1 (3.5-5.0) g/dL Current Medications Generic Name Dose Route Start Last Admin Trade Name Freq PRN Reason Stop Dose Admin Acetaminophen 650 mg 03/31/22 17:27 04/01/22 05:14 Acetaminophen Tab 325 Mg Tab PO 650 mg Q6HR PRN Administration Pain Aspirin 325 mg 04/01/22 09:00 Aspirin 325 Mg Tab PO DAILY [facility] Atorvastatin Calcium 40 mg 03/31/22 21:00 03/31/22 20:49 Atorvastatin 40 Mg Tab PO 40 mg HS [facility] Administration Bupropion HCl 150 mg 04/01/22 09:00 Bupropion Xl 150 Mg Tab.Er.24h PO DAILY [facility] Clopidogrel Bisulfate 75 mg 04/01/22 09:00 Clopidogrel 75 Mg Tab PO DAILY [facility] Insulin Aspart 0 unit 03/31/22 17:30 04/01/22 06:35 Insulin Aspart (Novolog) 100 Unit/Ml Vial SQ Not Given ACHS [facility] Protocol Lisinopril 20 mg 03/31/22 21:00 03/31/22 20:49 Lisinopril 20 Mg Tab PO 20 mg BID NANCY Administration Nitroglycerin 0.4 mg 03/31/22 14:22 Nitroglycerin Sl Tabs 0.4 Mg Tab SUBLINGUAL Q5M PRN Chest Pain Nitroglycerin 1 inch 03/31/22 18:00 04/01/22 07:01 Nitroglycerin Oint 1 Inch/Gm Packet TOPICAL Not Given Q6HR [facility] Oxybutynin Chloride 10 mg 04/01/22 09:00 Oxybutynin 10 Mg Tab.Er.24 PO DAILY [facility] Pantoprazole Sodium 40 mg 03/31/22 17:30 04/01/22 06:34 Pantoprazole 40 Mg Tablet PO 40 mg BID@0730,1730 [facility] Administration Propranolol HCl 80 mg 04/01/22 09:00 Propranolol La 80 Mg Cap.Sa.24h PO DAILY [facility] Ropinirole HCl 0.5 mg 03/31/22 22:00 03/31/22 20:49 Ropinirole Hcl 0.25 Mg Tab PO 0.5 mg TID [facility] Administration Tamsulosin HCl 0.4 mg 04/01/22 09:00 Tamsulosin 0.4 Mg Cap.Er.24h PO DAILY [facility] Intake and Output 03/31/22 04/01/22 04/01/22 22:59 06:59 14:59 Intake Total 236 Balance 236 Intake: Oral 236 Other: Voiding Method Toilet Toilet # Voids 1 2 Weight 106.594 kg 04/01/22 06:44 04/01/22 06:44
[2022-04-01 11:04] LABS: Chol/HDL Ratio 4.71 Ratio; LDL Cholesterol,Calculated 45.6 mg/dL (0.0-131.0)
--- NOTE | 2022-04-01 12:25 | CA ---
Lexiscan Nuclear Stress Test Report Name: Julio César Wade Exam Date: 04/01/2022 11:38 Exam Location: [place] Stress Ht (in): 72 Wt (lb): 250 BSA: 2.34 Ordering Phys: Arlyn Butts Referring Phys: ,, Technologist: Alejandro Jacobsen Age: 66 Gender: M : 1955 Procedure CPT: Indications: Reflex order-Stress test ICD-10 Codes: Patient History: Chest Pain Medications: Meds past 24 hrs: Pretest Chest Pain: STRESS TEST Lexiscan Protocol Exercise Duration (min:sec): 02:[address] Depressions (mm): Angina Score: Miller Score: Resting HR (bpm): 71 Peak HR (bpm): 97 Resting BP (mmHg): 145 / 101 Peak BP (mmHg): 168 / 95 MPHR: 155 Target HR: 132 % MPHR: 63 METS: 1.0 Total Dose: Peak Dose: Atropine: Double Product: 52617 BP Response: Stress Termination: Infusion complete Stress Symptoms: Dyspnea, , Nausea Stress Summary: ECG ANALYSIS Resting ECG: Stress ECG: CONCLUSIONS At baseline EKG showed normal sinus rhythm, left axis deviation, incomplete right bundle branch block without significant ST or T wave abnormalities. Patient recieved IV infusion of Lexiscan 0.4mg and at peak infusion EKG showed no significant change from baseline Conclusions: 1. Normal EKG response to Lexiscan infusion 2. Nuclear imaging to be reported separately. Dr. Tao Pierce DO (Electronically Signed) Final Date: 01 April 2022 12:24
--- NOTE | 2022-04-01 12:32 | CA ---
Transthoracic Echo Report Name: Julio César Wade Age: 66 Gender: M : 1955 Exam Date: 04/01/2022 10:05 Exam Location: [place] Echo Ht (in): 72 Wt (lb): 235 Ordering Physician: Arlyn Butts Attending/Referring Phys: [id number], Beckie Financial Sales Representative Herminia Vazquez, CECIL Procedure CPT: Indications: LV function, SOB Cardiac Hx: Technical Quality: Contrast 1: Total Dose (mL): Contrast 2: Total Dose (mL): MEASUREMENTS (Male / Female) Normal Values 2D ECHO LV Diastolic Diameter PLAX 5.0 cm 4.2 - 5.9 / 3.9 - 5.3 cm LV Systolic Diameter PLAX 3.9 cm IVS Diastolic Thickness 1.3 cm 0.6 - 1.0 / 0.6 - 0.9 cm LVPW Diastolic Thickness 1.5 cm 0.6 - 1.0 / 0.6 - 0.9 cm LV Relative Wall Thickness 0.6 RV Internal Dim ED PLAX 2.9 cm LA Volume 64.6 cm??? 18 - 58 / 22 - 52 cm??? M-MODE Aortic Root Diameter MM 3.7 cm LA Systolic Diameter MM 3.4 cm LA Ao Ratio MM 0.9 MV E Point Septal Separation 0.5 cm AV Cusp Separation MM 2.1 cm DOPPLER MV Area PHT 2.2 cm??? Mitral E Point Velocity 53.5 cm/s Mitral A Point Velocity 101.4 cm/s Mitral E to A Ratio 0.5 MV Deceleration Time 347.6 ms MV E' Velocity 4.7 cm/s Mitral E to MV E' Ratio 11.3 FINDINGS Left Ventricle Left ventricular ejection fraction is estimated at 50-55%. Mildly increased left ventricular wall thickness. Right Ventricle Normal right ventricular size and function. Right Atrium Normal right atrial size. Left Atrium Mildly increased left atrial volume. Mitral Valve Structurally normal mitral valve. Mild mitral regurgitation. Aortic Valve Trileaflet aortic valve. Tricuspid Valve Structurally normal tricuspid valve. Mild tricuspid regurgitation. Pulmonic Valve Pulmonic valve not well visualized. Pericardium Echo free space anterior to the right ventricle likely represents a fat pad. Aorta Normal size aortic root and proximal ascending aorta. CONCLUSIONS Left ventricular ejection fraction 50-55% Mildly increased left ventricular wall thickness Mild mitral regurgitation Mild tricuspid regurgitation No pericardial effusion Previewed by: Dr. Tao Pierce DO (Electronically Signed) Final Date: 01 April 2022 12:31
[2022-04-01 12:33] LABS: Glucose,Whole Blood 143 mg/dL (70-110)
--- NOTE | 2022-04-01 13:29 | NM ---
EXAMINATION TYPE: NM stress lexiscan cardiolite DATE OF EXAM: 04/01/2022 COMPARISON: Previous exam 04/18/2019 HISTORY: Chest pain TECHNIQUE: After the intravenous administration of 10.1 mCi Tc 99m Sestamibi - Cardiolite resting SP ECT images acquired 65 minutes post injection. The patient received 0.4mg Lexiscan, 26 mCi Tc 99m Sestamibi - Stress images obtained 33 minutes post injection FINDINGS: Review of stress and rest SPECT images demonstrates decreased uptake along the inferior lateral left ventricle on stress and rest images, along the inferolateral wall more towards the base the heart the re is some decreased uptake greater on stress than rest images. Gated analysis shows normal wall mot ion with an estimated left ventricular ejection fraction of 54 %. 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
[2022-04-01] MEDS ORDERED: MAGNESIUM SULFATE-D5W PMX 1 GM in DEXTROSE/WATER 1 100ML.BAG IVPB ONE (14:00)
[2022-04-01] MEDS ORDERED: METOCLOPRAMIDE 5 MG/ML 2 ML VIAL IVP STA (15:32)
[2022-04-01 16:28] LABS: Glucose,Whole Blood 176 mg/dL (70-110)
[2022-04-01] MEDS ORDERED: ACETAMINOPHEN TAB 500 MG TAB PO STA (18:00)
[2022-04-01] MEDS ORDERED: PROMETHAZINE 25 MG TAB PO ONE (18:04)
[2022-04-01 20:37] LABS: Glucose,Whole Blood 123 mg/dL (70-110)
[2022-04-01] MEDS: ATORVASTATIN 40 MG TAB PO SCH (21:03)
--- NOTE | 2022-04-01 22:40 | P.HPIM ---
History of Present Illness H&P Date: 04/01/22 Chief Complaint: chest pain Julio César Wade is a 66 yo M with PMH significant for PAD s/p stenting, HTN, HLD hx tobacco abuse who presented to the ED with chest pain. He states yesterday he was sitting in the chair at home and he began to have a heavy pressure in his chest with associated shortness of breath. He denied any radiation of the pain. He denied any diaphoresis. Denied any nausea or vomiting. He states he took a sublingual nitro which helped relieve his pain. He also reports he has been short of breath for the past 3 weeks with minimal exertion. On presentation BP 160/100, WBC 7.1, Hgb 12.8, Cr 1.2, trop negative, BNP 240. CXR no acute process and EKG NSR. Review of Systems All systems: negative Constitutional: Denies chills, Denies fever Eyes: denies blurred vision, denies pain Ears, nose, mouth and throat: Denies headache, Denies sore throat Cardiovascular: Reports chest pain, Reports dyspnea on exertion, Reports shortness of breath Respiratory: Denies cough Gastrointestinal: Denies abdominal pain, Denies diarrhea, Denies nausea, Denies vomiting Musculoskeletal: Denies myalgias Integumentary: Denies pruritus, Denies rash Neurological: Denies numbness, Denies weakness Psychiatric: Denies anxiety, Denies depression Endocrine: Denies fatigue, Denies weight change Past Medical History Past Medical History: Asthma, GERD/Reflux, Hyperlipidemia, Hypertension, Prostate Disorder, Sleep Apnea/CPAP/BIPAP Additional Past Medical History / Comment(s): ABD ANEURYSM. History of Any Multi-Drug Resistant Organisms: None Reported Past Surgical History: Hernia Repair, Orthopedic Surgery Additional Past Surgical History / Comment(s): RIGHT ROTATOR CUFF X 2. Deep brain stimulator, aaa stent, and vascular stents Past Anesthesia/Blood Transfusion Reactions: No Reported Reaction Additional Past Anesthesia/Blood Transfusion Reaction / Comment(s): shannen strophobic Past Psychological History: No Psychological Hx Reported Smoking Status: Former smoker Past Alcohol Use History: None Reported Additional Past Alcohol Use History / Comment(s): HAS SMOKED FOR 47 YRS, 1/2 PPD. Past Drug Use History: None Reported - Past Family History Father Family Medical History: Cancer Additional Family Medical History / Comment(s): mesothelioma Medications and Allergies Home Medications Medication Instructions Recorded Confirmed Type buPROPion HCL [buPROPion HCL XL] 150 mg PO DAILY 03/25/16 03/31/22 History Clopidogrel [Plavix] 75 mg PO DAILY 05/30/17 03/31/22 History Oxybutynin Chloride [Ditropan XL] 10 mg PO DAILY 05/30/17 03/31/22 History Tamsulosin [Flomax] 0.4 mg PO DAILY 05/30/17 03/31/22 History Atorvastatin [Lipitor] 40 mg PO HS 03/31/22 03/31/22 History Pantoprazole Sodium [Protonix] 40 mg PO BID 03/31/22 03/31/22 History Propranolol HCl [Propranolol HCl 80 mg PO DAILY 03/31/22 03/31/22 History ER] lisinopriL [Prinivil] 20 mg PO BID 03/31/22 03/31/22 History metFORMIN HCL 500 mg PO HS 03/31/22 03/31/22 History rOPINIRole HCL [Requip XL] 2 mg PO HS 03/31/22 03/31/22 History Allergies Allergy/AdvReac Type Severity Reaction Status Date / Time levofloxacin [From Levaquin] Allergy Rash/Hives Verified 03/31/22 13:13 ibuprofen [From Motrin] AdvReac Rapid Verified 03/31/22 13:13 Heart Rate Physical Exam Vitals: Vital Signs Temp Pulse Resp BP Pulse Ox 04/01/22 20:02 62 16 135/78 95 04/01/22 16:26 97.5 F L 80 16 134/69 95 04/01/22 12:38 97.5 F L 75 18 146/80 96 04/01/22 07:53 97.7 F 73 16 159/87 95 04/01/22 04:00 97.1 F L 65 158/81 96 04/01/22 01:10 18 04/01/22 00:06 97.6 F 71 16 124/57 95 Intake and Output 04/01/22 04/01/22 04/01/22 06:59 14:59 22:59 Intake Total 658 236 Output Total 1 Balance 657 236 Intake: Oral 658 236 Output: Stool 1 Other: Voiding Method Toilet Toilet Toilet # Voids 2 3 1 Gen: Well developed, well nourished male in NAD HEENT: NC/AT, mmm Neck: supple, no thyromegaly or JVD CV: RRR, no murmur Lungs: Normal effort, clear throughout Abd: soft, nontender, non distended Neuro: alert and oriented x3 no focal deficit Skin: warm and dry Results CBC & Chem 7: 04/01/22 06:44 04/01/22 06:44 Labs: Abnormal Lab Results - Last 24 Hours (Table) 04/01/22 04/01/22 04/01/22 Range/Units 06:16 06:44 06:44 RBC 3.66 L (4.30-5.90) m/uL Hgb 11.7 L (13.0-17.5) gm/dL Hct 33.2 L (39.0-53.0) % BUN 26 H (9-20) mg/dL Creatinine 1.36 H (0.66-1.25) mg/dL Glucose 125 H (74-99) mg/dL POC Glucose (mg/dL) 121 H (70-110) mg/dL Triglycerides 288.00 H (0.00-149.00) mg/dL VLDL Cholesterol, Calc 57.60 H (5.00-40.00) mg/dL HDL Cholesterol 27.80 L (40.00-60.00) mg/dL 04/01/22 04/01/22 04/01/22 Range/Units 12:31 16:27 20:35 RBC (4.30-5.90) m/uL Hgb (13.0-17.5) gm/dL Hct (39.0-53.0) % BUN (9-20) mg/dL Creatinine (0.66-1.25) mg/dL Glucose (74-99) mg/dL POC Glucose (mg/dL) 143 H 176 H 123 H (70-110) mg/dL Triglycerides (0.00-149.00) mg/dL VLDL Cholesterol, Calc (5.00-40.00) mg/dL HDL Cholesterol (40.00-60.00) mg/dL Assessment and Plan Plan: Chest pain. ACS ruled out. Cardiology consulted for further evaluation. Obtain stress test HTN. Continue lisinopril CAD. Continue ASA, lipitor, plavix. Start imdur. Continue with propranolol T2DM. Hold metformin. Accucheck and sliding scale
[2022-04-02 06:18] LABS: Glucose,Whole Blood 130 mg/dL (70-110)
[2022-04-02] MEDS: INSULIN ASPART (NovoLOG) 100 UNIT/ML VIAL SQ SCH ×4 (06:39→20:51)
[2022-04-02] MEDS: PANTOPRAZOLE 40 MG TABLET PO SCH ×2 (06:39→17:22)
[2022-04-02] MEDS: lisinopriL 20 MG TAB PO SCH ×2 (08:37→20:54)
[2022-04-02] MEDS: ISOSORBIDE MONONITRATE ER 30 MG TAB.ER.24H PO SCH (08:37)
[2022-04-02] MEDS: OXYBUTYNIN 10 MG TAB.ER.24 PO SCH (08:37)
[2022-04-02] MEDS: TAMSULOSIN 0.4 MG CAP.ER.24H PO SCH (08:37)
[2022-04-02] MEDS: ASPIRIN 81 MG PO SCH (08:37)
[2022-04-02] MEDS: buPROPion XL 150 MG TAB.ER.24H PO SCH (08:37)
[2022-04-02] MEDS: PROPRANOLOL LA 80 MG CAP.SA.24H PO SCH (08:38)
[2022-04-02] MEDS: CLOPIDOGREL 75 MG TAB PO SCH (08:38)
[2022-04-02 11:47] LABS: Glucose,Whole Blood 130 mg/dL (70-110)
[2022-04-02] MEDS: Acetaminophen-Codeine 300-30mg TAB PO PRN (12:19)
[2022-04-02] MEDS ORDERED: fentaNYL (PF) 50 MCG/ML 2 ML AMP ONE (13:02)
[2022-04-02] MEDS ORDERED: VERAPAMIL 2.5 MG/ML 2 ML AMP ONE ×2 (13:03→14:15)
[2022-04-02] MEDS: fentaNYL (PF) 50 MCG/ML 2 ML AMP IV ONE ×2 (13:07→14:22)
[2022-04-02] MEDS: MIDAZOLAM 2 MG/2 ML VIAL IV ONE ×4 (13:07→14:12)
[2022-04-02] MEDS ORDERED: LIDOCAINE 1% INJ 10MG/ML (30 ML VIAL-PF) SQ ONE (13:07)
[2022-04-02] MEDS ORDERED: VERAPAMIL SYRINGE (5 MG/10 ML) INTRAARTER ONE (13:08)
[2022-04-02] MEDS: HEPARIN SODIUM 1,000 UN/ML (10ML VL) IV ONE ×2 (13:15→14:22)
[2022-04-02] MEDS ORDERED: HEPARIN SODIUM,PORCINE 10,000 UNIT/ML 1 ML VIAL IV ONE ×2 (13:45)
[2022-04-02] MEDS ORDERED: SODIUM CHLORIDE 0.9% 1,000 ML IV ONE (13:50)
[2022-04-02] MEDS ORDERED: HEPARIN SODIUM 1,000 UN/ML (10ML VL) IV ONE (14:02)
[2022-04-02] MEDS: HEPARIN SODIUM 1,000 UN/ML (10ML VL) ONE ×2 (14:06→14:40)
[2022-04-02] MEDS ORDERED: HEPARIN SODIUM 1,000 UN/ML (10ML VL) ONE (14:17)
[2022-04-02] MEDS ORDERED: RX INFO: IV CONTRAST WAS GIVEN 1 EACH MISC MISCELLANE PRN (15:06)
[2022-04-02] MEDS ORDERED: ATROPINE SULFATE 0.1 MG/ML 10ML SYRINGE IV PRN (15:06)
[2022-04-02] MEDS ORDERED: NITROGLYCERIN SL TABS 0.4 MG TAB SUBLINGUAL PRN (15:06)
[2022-04-02] MEDS ORDERED: ZOLPIDEM 5 MG TAB PO PRN (15:06)
[2022-04-02] MEDS ORDERED: MAG HYDROX/AL HYDROX/SIMETH 30 ML CUP PO PRN (15:06)
--- NOTE | 2022-04-02 15:06 | P.PRCINT ---
Percutaneous Coronary Int. - Percutaneous Coronary Intervention Percutaneous Coronary Intervention: PROCEDURES PERFORMED: Bilateral coronary angiography, iFR of the circumflex, PCI of ostial RCA with 3.25 x 12mm Xience MANI postdilated with a 3.75 noncompliant balloon INDICATION: Unstable angina, abnormal stress test PROCEDURE: After the risks, benefits and alternatives of the above mentioned procedure explained in detail with the patient, informed consent was obtained. Patient had been taken to the catheterization lab and prepped and draped in usual fashion. A 6-Chilean sheath had been placed in the right radial artery. The decision was made to perform iFR of the circumflex. Heparin was given. A 6-Chilean CLS 3.0 guide was attempted to engage the left main however unsuccessful and therefore and FL 3.5 guide was used to engage the left main. A 0.014 pressure wire was advanced in the left main and normalize. This was then advanced approximately 1 cm distal to the mid circumflex lesion just past OM 2 branch. This was noted to be normal at 0.97. Therefore the wire was pulled. Decision was made to perform PCI of the RCA. A 6-Chilean AR to guide was used to subselectively engaged to RCA. Using a 0.014 wire and a guideline or we were able to free wire the RCA. Angioplasty was performed with a 2.0 x 12 mm balloon and then a 2.5 x 12 mm noncompliant balloon. Next a 3.25 x 12 mm Xience MANI was placed at the ostial RCA. Next there was still some waist related to the ostial calcification and this was postdilated with a 3.75 noncompliant balloon. Final angiograms were performed. Preintervention there was 95% stenosis and CHELA 2-3 flow and post intervention there was less than 10% stenosis and CHELA-3 flow. The right radial sheath was removed and a TR band was placed with hemostasis achieved. The patient tolerated the procedure well. Patient was transported back to the post catheterization holding area in stable condition. Conscious Sedation: Patient was monitored under the direct supervision of vision of myself for conscious sedation using Versed and fentanyl for a total duration of 67 minutes HEMODYNAMICS: Aorta: 122/72 SELECTIVE CORONARY ARTERIOGRAPHY: LEFT MAIN: The left main is a large caliber vessel which bifurcates into the LAD and circumflex. There is mild 10-20% left main stenosis. LEFT ANTERIOR DESCENDING CORONARY ARTERY: LAD is a large caliber vessel which wraps around to the apex. There is ostial LAD 30% stenosis and diffuse calcified tendon 30% LAD stenosis. LEFT CIRCUMFLEX CORONARY ARTERY: Left circumflex is a moderate to large caliber vessel. There is diffuse 20-30% calcified circumflex stenosis and a more focal 50-60% stenosis just distal to OM 2. (iFR normal at 0.97). The circumflex is codominant RIGHT CORONARY ARTERY: The right coronary artery is a large caliber vessel which gives off a PDA and PLV branch and is the dominant vessel. There is an ostial RCA 95% stenosis and otherwise mild luminal irregularities. FINAL IMPRESSION: 1. CAD as described above including 10-20% left main, LAD 30%, circumflex 50- 60% (iFR normal at 0.97) and RCA 95% ostial stenosis 2. S/p PCI of ostial RCA with 3.25 x 12mm Xience MANI postdilated with a 3.75 noncompliant balloon PLAN: 1. Aggressive risk factor modification per most recent ACC/AHA guidelines. 2. Continue with dual antiplatelets with aspirin and Plavix for 12 months.
[2022-04-02] MEDS ORDERED: IOPAMIDOL-370 125ML BTL INJ ONE (15:08)
[2022-04-02] MEDS ORDERED: IOPAMIDOL-370 100ML BTL INJ ONE (15:08)
--- NOTE | 2022-04-02 15:34 | P.PN ---
Subjective Progress Note Date: 04/02/22 Julio César Wade is a 66 yo M with PMH significant for PAD s/p stenting, HTN, HLD hx tobacco abuse who presented to the ED with chest pain. He states yesterday he was sitting in the chair at home and he began to have a heavy pressure in his chest with associated shortness of breath. He denied any radiation of the pain. He denied any diaphoresis. Denied any nausea or vomiting. He states he took a sublingual nitro which helped relieve his pain. He also reports he has been short of breath for the past 3 weeks with minimal exertion. On presentation BP 160/100, WBC 7.1, Hgb 12.8, Cr 1.2, trop negative, BNP 240. CXR no acute process and EKG NSR. 04/02/2022 Patient is seen today and underwent abnormal stress test and tentatively scheduled for cardiac catherization today with cardiology following closely. Patient is afebrile and denies chest pain or shortness of breath. No reports of nausea or vomiting and currently NPO for cath today. Will await report. REcommend to continue with telemetry monitoring and follow up on labs to monitor kidney functions. Recommend repeat am labs. physical Exam: Gen: Well developed, well nourished male in NAD HEENT: NC/AT, mmm Neck: supple, no thyromegaly or JVD CV: S1, S2 muffled, no murmur Lungs: diminished breath sounds bilaterally with no wheezing or rhonchi noted Abd: soft, nontender, non distended Neuro: alert and oriented x3 no focal deficit Skin: warm and dry Assessment: Chest pain. ACS ruled out. Abnormal stress test Hypertension Coronary artery disease Daibetes mellitus type 2 GI and DVT prophylaxis Full code Plan: Abnormal stress test, patient is NPO and to undergo cardiac catheterization today Recommend to continue with telemetry monitoring and follow up on report Follow up labs to monitor kidney functions Encouraged increased activity as tolerated Continue current medications Continue to monitor blood sugars achs and use sliding scale for now Prognosis is guarded The impression and plan of care has been dictated as a scribe by Inna Duncan, nurse practitioner as directed. Dr. Nestor MD I have performed a history and examination and MDM of this patient, discussed the same with the dictator, and has been documented as a scribe. Based on total visit time, I have performed more than 50% of the visit. Any additional findings or plans will be noted. Objective - Vital Signs Vital signs: Vital Signs Temp 97.6 F 04/02/22 04:15 Pulse 80 04/02/22 04:15 Resp 16 04/02/22 04:15 BP 148/89 04/02/22 04:15 Pulse Ox 97 04/02/22 04:15 FiO2 Intake & Output 04/01/22 04/02/22 04/02/22 18:59 06:59 18:59 Intake Total 776 118 Output Total 1 Balance 775 118 Intake: Oral 776 118 Output: Stool 1 Other: Voiding Method Toilet Toilet # Voids 3 1 - Labs CBC & Chem 7: 04/01/22 06:44 04/01/22 06:44 Labs: Abnormal Lab Results - Last 24 Hours (Table) 04/01/22 04/01/22 04/01/22 Range/Units 06:44 12:31 16:27 POC Glucose (mg/dL) 143 H 176 H (70-110) mg/dL Triglycerides 288.00 H (0.00-149.00) mg/dL VLDL Cholesterol, Calc 57.60 H (5.00-40.00) mg/dL HDL Cholesterol 27.80 L (40.00-60.00) mg/dL 04/01/22 04/02/22 Range/Units 20:35 06:17 POC Glucose (mg/dL) 123 H 130 H (70-110) mg/dL Triglycerides (0.00-149.00) mg/dL VLDL Cholesterol, Calc (5.00-40.00) mg/dL HDL Cholesterol (40.00-60.00) mg/dL
[2022-04-02 15:39] VITALS: RESP 18
[2022-04-02] MEDS: SODIUM CHLORIDE 0.9% 1,000 ML in EMPTY BAG 1 BAG IV SCH (15:40)
[2022-04-02 16:50] LABS: Glucose,Whole Blood 159 mg/dL (70-110)
[2022-04-02 20:44] LABS: Glucose,Whole Blood 148 mg/dL (70-110)
[2022-04-02] MEDS: ATORVASTATIN 40 MG TAB PO SCH (20:54)
[2022-04-03] MEDS: Acetaminophen-Codeine 300-30mg TAB PO PRN
[2022-04-03] MEDS: SODIUM CHLORIDE 0.9% 1,000 ML in EMPTY BAG 1 BAG IV SCH ×2 (04:06→11:23)
[2022-04-03 06:21] LABS: Glucose,Whole Blood 126 mg/dL (70-110)
[2022-04-03] MEDS: INSULIN ASPART (NovoLOG) 100 UNIT/ML VIAL SQ SCH ×2 (06:39→12:20)
[2022-04-03] MEDS: PANTOPRAZOLE 40 MG TABLET PO SCH (06:41)
--- NOTE | 2022-04-03 08:42 | CC ---
CARDIAC CATHETERIZATION REPORT INDICATION: Known coronary artery disease with symptoms suggestive of unstable angina and ischemia involving the inferolateral wall. PROCEDURE NOTE: After obtaining informed consent, left heart catheterization and coronary angiogram were performed via the right radial artery. The patient tolerated the procedure well without any obvious immediate complications. The patient received moderate conscious sedation. Total sedation time was 24 minutes. We initially attempted right radial artery access and so a 6-Korean sheath was placed and under fluoroscopic guidance catheters and wires were exchanged in the ascending aorta. Left ventricular pressures were obtained using a 3.5 right Jone catheter. Subselective images of the right coronary were obtained using a size 4 right Jone catheter and the left coronary system was engaged using the 3.5 left Jone. The patient received 5 mg of verapamil and 5000 units of intravenous heparin per protocol. At the end of the diagnostic catheterization, Dr. Pierce reviewed the angiographic data and will perform iFR of the circumflex coronary artery and do angioplasty of the ostial right. FINDINGS: 1. Hemodynamics: Left ventricular end-diastolic pressure is 14-16 mm. There is no significant gradient across the aortic valve. 2. Left ventriculogram: Left ventriculogram is not performed. 3. Angiographic data: a.Right coronary artery: Right coronary artery appears calcified, was subselectively engaged and it is calcified and there is a tight ostial stenosis of the right coronary artery. The rest of the vessel seemed free of significant disease. b.Left main coronary artery is calcified and there is some plaque in the distal left main, divides into left anterior descending coronary artery and circumflex coronary artery. Circumflex coronary artery appears calcified with mild-to- moderate diffuse disease. Second OM branch shows a [id number] ostial stenosis. LAD is calcified, shows a 50% to 60% ostial LAD stenosis. CONCLUSIONS: Three-vessel coronary artery disease with 90% ostial stenosis of the right coronary artery, significant disease involving the ostial portion of the second OM, moderate disease involving the ostial portion of the LAD. PLAN: Angiographic data was reviewed by Dr. Pierce, the on-call kelp or seagrass gatherer, who will attempt angioplasty of the ostial right and will do an iFR of the circumflex coronary artery. MMODL / IJN: [id number] /
[2022-04-03 08:43] VITALS: BP 167/93; PULSE 85; TEMP 98
[2022-04-03] MEDS: ASPIRIN 81 MG PO SCH (08:43)
[2022-04-03] MEDS: OXYBUTYNIN 10 MG TAB.ER.24 PO SCH (08:43)
[2022-04-03] MEDS: ISOSORBIDE MONONITRATE ER 30 MG TAB.ER.24H PO SCH (08:43)
[2022-04-03] MEDS: buPROPion XL 150 MG TAB.ER.24H PO SCH (08:43)
[2022-04-03] MEDS: lisinopriL 20 MG TAB PO SCH (08:43)
[2022-04-03] MEDS: TAMSULOSIN 0.4 MG CAP.ER.24H PO SCH (08:44)
[2022-04-03] MEDS: CLOPIDOGREL 75 MG TAB PO SCH (08:44)
[2022-04-03] MEDS ORDERED: METOPROLOL SUCCINATE (ER) 25 MG TAB.ER.24H PO SCH (09:00)
[2022-04-03 09:52] LABS: Calcium 8.4 mg/dL (8.4-10.2); Potassium 4.1 mmol/L (3.5-5.1)
[2022-04-03 11:43] LABS: Glucose,Whole Blood 142 mg/dL (70-110)
[2022-04-03] MEDS ORDERED: METOPROLOL SUCCINATE (ER) 25 MG TAB.ER.24H PO STA (12:45)
--- NOTE | 2022-04-03 12:45 | P.PN ---
Subjective Progress Note Date: 04/03/22 Patient underwent a cardiac catheterization to evaluate chest pain. He was found to have 10-20% stenosis of the left main, 50-60% of the circumflex, iFR normal at 0.97, and the RCA 95% ostial stenosis. He received PCI to the hospital RCA. Patient is on dual antiplatelet therapy of aspirin and Plavix. He will continue with Lipitor Imdur lisinopril and Toprol. Patient's blood pressure is elevated today we'll increase Toprol to 50 mg daily. Patient is clear for discharge from a cardiac standpoint. Will also discharge him home with sublingual nitro. Objective - Vital Signs Vital signs: Vital Signs Temp 98 F 04/03/22 08:00 Pulse 85 04/03/22 08:00 Resp 18 04/03/22 08:00 BP 167/93 04/03/22 08:00 Pulse Ox 97 04/03/22 08:00 FiO2 Intake & Output 04/02/22 04/03/22 04/03/22 18:59 06:59 18:59 Intake Total 418 240 Balance 418 240 Intake: IV 300 Oral 118 240 Other: Voiding Method Toilet # Voids 2 - Exam PHYSICAL EXAM: VITAL SIGNS: Reviewed. GENERAL: Well-developed in no acute distress. HEENT: Head is normocephalic. Pupils are equal, round. Sclerae anicteric. Mucous membranes of the mouth are moist. NECK: Supple. No JVD or thyromegaly RESPIRATORY: Respirations even and unlabored. Lungs diminished to auscultation bilaterally. CARDIO: Regular rate and rhythm. S1 and S2 heard. No murmur or gallops. EXTREMITIES: Normal range of motion. No clubbing or cyanosis. Peripheral pulses intact. Negative for bilateral lower extremity edema. Right radial puncture site is soft no hematoma no ecchymosis NEURO: Orientated to person, time, mood is appropriate - Labs CBC & Chem 7: 04/01/22 06:44 04/03/22 08:57 Labs: Abnormal Lab Results - Last 24 Hours (Table) 04/02/22 04/02/22 04/03/22 Range/Units 16:49 20:43 06:19 Carbon Dioxide (22-30) mmol/L Glucose (74-99) mg/dL POC Glucose (mg/dL) 159 H 148 H 126 H (70-110) mg/dL Magnesium (1.6-2.3) mg/dL 04/03/22 04/03/22 04/03/22 Range/Units 08:57 08:57 11:41 Carbon Dioxide 21 L (22-30) mmol/L Glucose 196 H (74-99) mg/dL POC Glucose (mg/dL) 142 H (70-110) mg/dL Magnesium 1.5 L (1.6-2.3) mg/dL Assessment and Plan Assessment: Abnormal cardiac testing Coronary artery disease status post angioplasty to the RCA Plan: Increase Toprol-XL to 50 mg daily Continue with all current cardiac medications. Patient will be discharged home with sublingual nitro Patient is clear for discharge from a cardiac standpoint will follow-up in the office in one week The above impression and plan of care have been discussed and directed by the signing physician. Aliya Sanderson, nurse practitioner, acting as scribe for signing physician.
[2022-04-03] MEDS ORDERED: Magnesium Replacement Protocol 1 EACH MISC MISCELLANE PRN (13:01)
[2022-04-03] MEDS ORDERED: MAGNESIUM OXIDE 400 MG TAB PO STA ×2 (13:07→13:08)
[2022-04-03] MEDS ORDERED: MAGNESIUM SULFATE-D5W PMX 1 GM in DEXTROSE/WATER 1 100ML.BAG IVPB SCH (13:15)
[2022-04-04] MEDS ORDERED: CLOPIDOGREL 75 MG TAB PO SCH (09:00)
[2022-04-04] MEDS ORDERED: METOPROLOL SUCCINATE (ER) 50 MG TAB.ER.24H PO SCH (09:00)
--- NOTE | 2022-04-06 14:38 | P.DS ---
Providers Date of admission: 03/31/22 14:22 Expected date of discharge: 04/03/22 Attending physician: Marty Garcia MD Consults: 03/31/22 14:22 Consult Physician Urgent Consulting Provider: Shannon Guo Consult Reason/Comments: Chest pain, hypomagnesemia Do you want consulting provider notified?: Yes 04/02/22 15:06 Consult Physician Routine Consulting Provider: Shannon Guo Consult Reason/Comments: Post Interventional Patient Do you want consulting provider notified?: Already Contacted Primary care physician: Luda Garcia Hospital Course: Final Diagnosis Chest pain. ACS ruled out. Abnormal stress test Postcardiac catheterization with stenting to the mid RCA Hypertension Coronary artery disease Daibetes mellitus type 2 GI and DVT prophylaxis Full code Discharge disposition Patient is being discharged in a stable condition with guarded prognosis to home with. Patient will follow-up with Dr. Garcia in the outpatient setting upon discharge. Patient is to also follow-up with cardiology outpatient. To continue with current cardiac medications as prescribed. Total time taken is greater than 35 minutes. Hospital course This is an 66-year-old female who was recently admitted with heavy chest pressure and chest pain associated with shortness of breath. Patient was seen and evaluated by cardiology underwent cardiac catheterization with stenting and also maximizing medical management. Cardiology has seen and evaluated the patient today and clearing them for discharge with close outpatient follow-up. Patient reports the feeling well and would like to be discharged home. Patient also encouraged to follow-up with primary care provider on discharge. Currently no reports of chest pain, shortness of breath, or palpitations. Patient is afebrile. No reports of nausea or vomiting and patient is tolerating diet. Patient will be discharged home today. Guarded prognosis. On exam vital signs are stable. Cardio S1, S2 are muffled. Respiratory system shows diminished breath sounds at the bases with no wheezing or rhonchi noted. Abdomen is soft and nontender. Nervous system shows a focal deficits. Please refer to medication reconciliation sheet for a list of medications. The impression and plan of care has been dictated by Inna Duncan, Nurse Practitioner as directed. Dr. Nestor MD I have performed a history and examination and MDM of this patient, discussed the same with the dictator, and agree with the dictator's assessment and plan as written ,documented as a scribe. Based on total visit time, I have performed more than 50% of the visit. Patient Condition at Discharge: Stable Plan - Discharge Summary Discharge Rx Participant: Yes New Discharge Prescriptions: New Aspirin 81 mg PO DAILY #30 tab Isosorbide Mononitrate ER [Imdur] 30 mg PO DAILY #30 tab Metoprolol Succinate (ER) [Toprol XL] 50 mg PO DAILY #30 tab Acetaminophen Tab [Tylenol] 650 mg PO Q6HR PRN tab PRN Reason: Pain Nitroglycerin 0.4 mg SL Q5M #100 tab Continue buPROPion HCL [buPROPion HCL XL] 150 mg PO DAILY Oxybutynin Chloride [Ditropan XL] 10 mg PO DAILY Tamsulosin [Flomax] 0.4 mg PO DAILY Clopidogrel [Plavix] 75 mg PO DAILY metFORMIN HCL 500 mg PO HS Pantoprazole Sodium [Protonix] 40 mg PO BID Atorvastatin [Lipitor] 40 mg PO HS rOPINIRole HCL [Requip XL] 2 mg PO HS lisinopriL [Prinivil] 20 mg PO BID Discontinued Propranolol HCl [Propranolol HCl ER] 80 mg PO DAILY Discharge Medication List buPROPion HCL [buPROPion HCL XL] 150 mg PO DAILY 03/25/16 [History] Clopidogrel [Plavix] 75 mg PO DAILY 05/30/17 [History] Oxybutynin Chloride [Ditropan XL] 10 mg PO DAILY 05/30/17 [History] Tamsulosin [Flomax] 0.4 mg PO DAILY 05/30/17 [History] Atorvastatin [Lipitor] 40 mg PO HS 03/31/22 [History] Pantoprazole Sodium [Protonix] 40 mg PO BID 03/31/22 [History] lisinopriL [Prinivil] 20 mg PO BID 03/31/22 [History] metFORMIN HCL 500 mg PO HS 03/31/22 [History] rOPINIRole HCL [Requip XL] 2 mg PO HS 03/31/22 [History] Acetaminophen Tab [Tylenol] 650 mg PO Q6HR PRN tab 04/03/22 [Rx] Aspirin 81 mg PO DAILY #30 tab 04/03/22 [Rx] Isosorbide Mononitrate ER [Imdur] 30 mg PO DAILY #30 tab 04/03/22 [Rx] Metoprolol Succinate (ER) [Toprol XL] 50 mg PO DAILY #30 tab 04/03/22 [Rx] Nitroglycerin 0.4 mg SL Q5M #100 tab 04/03/22 [Rx] Follow up Appointment(s)/Referral(s): Luda Garcia DO [Primary Care Provider] - 1-2 days Shree Vazquez MD [STAFF PHYSICIAN] - 1 Week Ambulatory/Diagnostic Orders: Basic Metabolic Panel [LAB.AMB] Time Frame: 3 Days, Location: None Selected Patient Instructions/Handouts: Angina (DC), Hypomagnesemia (DC) Activity/Diet/Wound Care/Special Instructions: activity limited until follow up follow up with pcp on discharge follow up with cardiology outpatient repeat labs in 2-3 days take meds as prescribed continue cardiac diet/ diabetic diet Discharge Disposition: HOME SELF-CARE
== END 2022-04-03 13:26 | disposition home or self-care (01) | DRG 247 ==
LOC: EC 10:52 → 3SCARD 14:22
PROVIDERS: ADMIT Family Medicine; ATTEND Family Medicine
PROC: 027034Z Dilation of Coronary Artery, One Artery with Drug-eluting Intraluminal Device, Percutaneous Approach (ICD-10-PCS; principal; 2022-03-31)
PROC: B2151ZZ Fluoroscopy of Left Heart using Low Osmolar Contrast (ICD-10-PCS; 2022-04-02)
PROC: 4A023N7 Measurement of Cardiac Sampling and Pressure, Left Heart, Percutaneous Approach (ICD-10-PCS; 2022-04-02 12:59)
PROC: B2111ZZ Fluoroscopy of Multiple Coronary Arteries using Low Osmolar Contrast (ICD-10-PCS; 2022-04-02 12:59)
DX: I25.119 Atherosclerotic heart disease of native coronary artery with unspecified angina pectoris (principal); E83.42 Hypomagnesemia; Z87.891 Personal history of nicotine dependence; I10 Essential (primary) hypertension; E11.9 Type 2 diabetes mellitus without complications; I08.1 Rheumatic disorders of both mitral and tricuspid valves; E78.00 Pure hypercholesterolemia, unspecified; I71.40 Abdominal aortic aneurysm, without rupture, unspecified; F40.240 Claustrophobia; I25.10 Atherosclerotic heart disease of native coronary artery without angina pectoris; I45.10 Unspecified right bundle-branch block; J45.909 Unspecified asthma, uncomplicated; Z79.02 Long term (current) use of antithrombotics/antiplatelets; Z79.84 Long term (current) use of oral hypoglycemic drugs; Z79.899 Other long term (current) drug therapy; Z95.5 Presence of coronary angioplasty implant and graft; Z88.1 Allergy status to other antibiotic agents; Z88.6 Allergy status to analgesic agent
CPT/HCPCS: 36415; 37799; 71046; 78452; 80048; 80053; 80061; 83735; 83880; 84484; 85025; 85027; 85610; 85730; 93005; 93017; 93306; 93458; 96365; 96366; 99285

== ENCOUNTER 2022-06-08 22:03 | Emergency (ER) | payer BC ==
[2022-06-08 22:32] VITALS: RESP 16; TEMP 98
[2022-06-09 00:02] LABS: Basophils # (A) 0.1 k/uL (0-0.2); Basophils % (A) 1 %; Eosinophils # (A) 0.3 k/uL (0-0.7); Eosinophils % (A) 3 %; HCT 34.7 % (39.0-53.0); HGB 12.5 gm/dL (13.0-17.5); Lymphocytes # (A) 2.1 k/uL (1.0-4.8); Lymphocytes % (A) 21 %; MCH 31.8 pg (25.0-35.0); MCV 88.3 fL (80.0-100.0); Mean Platelet Volume 7.7; Monocytes # (A) 0.5 k/uL (0-1.0); Monocytes % (A) 5 %; Neutrophils # (A) 6.8 k/uL (1.3-7.7); Neutrophils % (A) 68 %; Platelet Count 226 k/uL (150-450); RBC 3.93 m/uL (4.30-5.90); RDW 13.3 % (11.5-15.5)
[2022-06-09 00:12] VITALS: BP 93/62; PULSE 51
[2022-06-09 00:12] LABS: Albumin 4.3 g/dL (3.5-5.0); Potassium 5.1 mmol/L (3.5-5.1); Total Bilirubin 0.4 mg/dL (0.2-1.3); Total Protein 7.1 g/dL (6.3-8.2)
--- NOTE | 2022-06-09 01:01 | ED ---
General Adult HPI - General Chief complaint: Recheck/Abnormal Lab/Rx Stated complaint: Lowering BP Time Seen by Provider: 06/08/22 23:36 Source: patient Mode of arrival: ambulatory Limitations: no limitations - History of Present Illness Initial comments: This is 66-year-old male with a past medical history including hypertension and BPH presents emergency department for low blood pressure. The patient stated that he did take his blood pressure medication in the morning but noted that he was feeling lightheaded and dizzy after dinner approximate 6 PM speaking to the emergency department once he was told by his net developer consultant physician to be evaluated in the emergency department. The patient did note that his blood pressure was low at home speaking to the emergency department for evaluation. On evaluation, the patient was resting in bed comfortably, not completely any lightheadedness or dizziness. The patient denied of any acute complaints currently. The patient denied any recent sick contacts and denied any nausea, vomiting, fevers and chills. The patient did however state that he only has a single cup of coffee and one soda throughout the entire day and does not eat and drink is appropriate. The patient also reported that he had one episode of diarrhea today. - Related Data Home Medications Medication Instructions Recorded Confirmed buPROPion HCL [buPROPion HCL XL] 150 mg PO DAILY 03/25/16 03/31/22 Clopidogrel [Plavix] 75 mg PO DAILY 05/30/17 03/31/22 Oxybutynin Chloride [Ditropan XL] 10 mg PO DAILY 05/30/17 03/31/22 Tamsulosin [Flomax] 0.4 mg PO DAILY 05/30/17 03/31/22 Atorvastatin [Lipitor] 40 mg PO HS 03/31/22 03/31/22 Pantoprazole Sodium [Protonix] 40 mg PO BID 03/31/22 03/31/22 lisinopriL [Prinivil] 20 mg PO BID 03/31/22 03/31/22 metFORMIN HCL 500 mg PO HS 03/31/22 03/31/22 rOPINIRole HCL [Requip XL] 2 mg PO HS 03/31/22 03/31/22 Previous Rx's Medication Instructions Recorded Acetaminophen Tab [Tylenol] 650 mg PO Q6HR PRN tab 04/03/22 Aspirin 81 mg PO DAILY #30 tab 04/03/22 Isosorbide Mononitrate ER [Imdur] 30 mg PO DAILY #30 tab 04/03/22 Metoprolol Succinate (ER) [Toprol 50 mg PO DAILY #30 tab 04/03/22 XL] Nitroglycerin 0.4 mg SL Q5M #100 tab 04/03/22 Allergies Allergy/AdvReac Type Severity Reaction Status Date / Time levofloxacin [From Levaquin] Allergy Rash/Hives Verified 03/31/22 13:13 ibuprofen [From Motrin] AdvReac Rapid Verified 03/31/22 13:13 Heart Rate Review of Systems ROS Statement: Those systems with pertinent positive or pertinent negative responses have been documented in the HPI. ROS Other: All systems not noted in ROS Statement are negative. Past Medical History Past Medical History: Asthma, GERD/Reflux, Hyperlipidemia, Hypertension, Prostate Disorder, Sleep Apnea/CPAP/BIPAP Additional Past Medical History / Comment(s): ABD ANEURYSM. History of Any Multi-Drug Resistant Organisms: None Reported Past Surgical History: Hernia Repair, Orthopedic Surgery Additional Past Surgical History / Comment(s): RIGHT ROTATOR CUFF X 2. Deep br ain stimulator, aaa stent, and vascular stents Past Anesthesia/Blood Transfusion Reactions: No Reported Reaction Additional Past Anesthesia/Blood Transfusion Reaction / Comment(s): claustrophobic Past Psychological History: No Psychological Hx Reported Smoking Status: Former smoker Past Alcohol Use History: None Reported Past Drug Use History: None Reported - Past Family History Father Family Medical History: Cancer Additional Family Medical History / Comment(s): mesothelioma General Exam Limitations: no limitations General appearance: alert, in no apparent distress Head exam: Present: atraumatic, normocephalic Eye exam: Present: normal appearance, PERRL Pupils: Present: normal accommodation ENT exam: Present: normal exam, normal oropharynx, mucous membranes moist Neck exam: Present: normal inspection, tenderness Respiratory exam: Present: normal lung sounds bilaterally Cardiovascular Exam: Present: regular rate, normal rhythm, normal heart sounds GI/Abdominal exam: Present: soft, normal bowel sounds Extremities exam: Present: normal inspection, full ROM Back exam: Present: normal inspection, full ROM Neurological exam: Present: alert, oriented X3, CN II-XII intact Psychiatric exam: Present: normal affect, normal mood Skin exam: Present: warm, dry Course Vital Signs 06/08/22 06/08/22 06/09/22 22:28 22:51 00:00 Temperature 98 F Pulse Rate 150 H 88 51 L Respiratory 16 16 Rate Blood Pressure 88/54 93/62 O2 Sat by Pulse 98 98 Oximetry Medical Decision Making - Medical Decision Making Was pt. sent in by a medical professional or institution? @ -Yes, net developer consultant physician Did you speak to anyone other than the patient for history? @ -Yes, patient Did you review nursing and triage notes? @ -Nursing triage notes were reviewed Were old charts reviewed? @ -No Differential Diagnosis? @ -Acute coronary syndrome, electrolyte abnormalities, decrease by mouth intake, dehydration EKG interpreted by me (3pts min.)? @ -[none] X-rays interpreted by me (1pt min.)? @ -[none] CT interpreted by me (1pt min.)? @ -[none] U/S interpreted by me (1pt. min.)? @ -[none] What testing was considered but not performed? (CT, X-rays, U/S, labs)? Why? @A chest x-ray was considered as well as an EKG however the patient denied of any acute complaints at this time. When I evaluated the patient, the patient's blood pressure was normotensive. What meds were considered but not given? Why? @ -[none] Did you discuss the management of the patient with other professionals? @ -None Did you reconcile home meds? @ -[none] Was smoking cessation discussed for >3mins.? @ -[none] Was critical care preformed (if so, how long)? @ -[none] Were there social determinants of health that impacted care today? How? (Homelessness, low income, unemployed, alcoholism, drug addiction, transportation, low edu. Level, literacy, decrease access to med. care, long-term, rehab)? @ -No Was there de-escalation of care discussed even if they declined? (Discuss DNR or withdrawal of care, Hospice)? @ -No What co-morbidities impacted this encounter? (DM, HTN, Smoking, COPD, CAD, Cancer, CVA, Hep., AIDS, mental health diagnosis, sleep apnea, morbid obesity)? @ -Hypertension Was patient admitted / discharged? @ -The patient was seen and evaluated emergency department. On evaluation, the patient was resting in bed without any acute distress. Vital signs admission did show an elevated pulse of 150 however when I evaluated the patient, the patient's heart rate was 88 with a blood pressure of 105/80. The patient did not complain of any acute pain or distress and did have basic laboratory workup obtained and was within normal limits. The patient did receive 1 L no sealing fluid and continued to remain stable. The patient's creatinine was elevated 2. 44 however was not exactly double his baseline. The patient remained stable did not require any inpatient admission but was extensively counseled to increase his by mouth intake in order to increase his hydration status. The patient was otherwise stable for discharge and told to follow-up with his primary care physician for further workup and evaluation. The patient was agreeable to this and was discharged home in stable condition with his . Undiagnosed new problem with uncertain prognosis? @ -[none] Drug Therapy requiring intensive monitoring for toxicity (Heparin, Nitro, Insulin, Cardizem)? @ -[none] Were any procedures done? @ -[none] Diagnosis/symptom? @ -Hypotension, resolved likely secondary to dehydration Acute, or Chronic, or Acute on Chronic? @ -Acute Uncomplicated (without systemic symptoms) or Complicated (systemic symptoms)? @ -Uncomplicated Side effects of treatment? @ -[none] Exacerbation, Progression, or Severe Exacerbation] @ -[no] Poses a threat to life or bodily function? @ -[no] Diagnosis/symptom? @ -WEST on CKD Acute, or Chronic, or Acute on Chronic? @ -Acute on chronic Uncomplicated (without systemic symptoms) or Complicated (systemic symptoms)? @ -Uncomplicated Side effects of treatment? @ -[none] Exacerbation, Progression, or Severe Exacerbation] @ -[no] Poses a threat to life or bodily function? @ -[no] - Lab Data Result diagrams: 06/08/22 23:55 06/08/22 23:55 Lab Results 06/08/22 06/08/22 06/08/22 Range/Units 23:55 23:55 23:55 WBC 10.0 (3.8-10.6) k/uL RBC 3.93 L (4.30-5.90) m/uL Hgb 12.5 L (13.0-17.5) gm/dL Hct 34.7 L (39.0-53.0) % MCV 88.3 (80.0-100.0) fL MCH 31.8 (25.0-35.0) pg MCHC 36.0 (31.0-37.0) g/dL RDW 13.3 (11.5-15.5) % Plt Count 226 (150-450) k/uL MPV 7.7 Neutrophils % 68 % Lymphocytes % 21 % Monocytes % 5 % Eosinophils % 3 % Basophils % 1 % Neutrophils # 6.8 (1.3-7.7) k/uL Lymphocytes # 2.1 (1.0-4.8) k/uL Monocytes # 0.5 (0-1.0) k/uL Eosinophils # 0.3 (0-0.7) k/uL Basophils # 0.1 (0-0.2) k/uL Sodium 137 (137-145) mmol/L Potassium 5.1 (3.5-5.1) mmol/L Chloride 105 (98-107) mmol/L Carbon Dioxide 25 (22-30) mmol/L Anion Gap 7 mmol/L BUN 40 H (9-20) mg/dL Creatinine 2.44 H (0.66-1.25) mg/dL Est GFR (CKD-EPI)AfAm 31 (>60 ml/min/1.73 sqM) Est GFR (CKD-EPI)NonAf 27 (>60 ml/min/1.73 sqM) Glucose 118 H (74-99) mg/dL Calcium 9.0 (8.4-10.2) mg/dL Total Bilirubin 0.4 (0.2-1.3) mg/dL AST 27 (17-59) U/L ALT 28 (4-49) U/L Alkaline Phosphatase 81 (38-126) U/L Troponin I <0.012 (0.000-0.034) ng/mL Total Protein 7.1 (6.3-8.2) g/dL Albumin 4.3 (3.5-5.0) g/dL Disposition Clinical Impression: Hypotension, Dehydration, WEST (acute kidney injury) Disposition: HOME SELF-CARE Condition: Stable Instructions (If sedation given, give patient instructions): Dehydration (DC), Acute Kidney Injury (DC), Hypotension (DC) Is patient prescribed a controlled substance at d/c from ED?: No Referrals: Luda Garcia DO [Primary Care Provider] - 06/10/22 Time of Disposition: 00:45
== END 2022-06-09 01:06 | disposition home or self-care (01) ==
LOC: EC 22:03
DX: I95.9 Hypotension, unspecified (principal); E86.0 Dehydration; N17.9 Acute kidney failure, unspecified; J45.909 Unspecified asthma, uncomplicated; K21.9 Gastro-esophageal reflux disease without esophagitis; I10 Essential (primary) hypertension; E78.5 Hyperlipidemia, unspecified; Z87.891 Personal history of nicotine dependence; Z88.1 Allergy status to other antibiotic agents; Z88.6 Allergy status to analgesic agent; Z79.899 Other long term (current) drug therapy
CPT/HCPCS: 36415; 80053; 84484; 85025; 99284

== ENCOUNTER → 2022-06-29 | Outpatient (CLI) | payer BC, MEDICARE ==
--- NOTE | 2022-06-29 15:17 | P.SLEEP ---
History of Present Illness DATE: 06/29/2022 CONSULTATION/NEW PATIENT EVALUATION HISTORY OF PRESENT ILLNESS/SLEEP-WAKE EVALUATION: 66-year-old gentleman had been evaluated in the sleep center for possible obstructive sleep apnea hypopnea syndrome. Patient had sleep study about 10 years ago which showed that he has obstructive sleep apnea hypopnea syndrome, he was tried on CPAP but was not able to use CPAP equipment secondary to claustrophobia problems. SLEEP SCHEDULE: Usually sleep schedule from 8 PM to 6:30 AM. FALLING ASLEEP: No problems with falling asleep, although patient has TV set and bedroom. DURING SLEEP: Patient snores and has multiple awakenings from sleep around 5 times with nocturia. No history of hypnogogical hallucinations, sleep paralysis, or cataplexy. DURING THE DAY/WAKE STATE: In the morning patient wake up tired, falling asleep during the day, has problems with memory, claustrophobia. [place] sleepiness scale increased to 12. Patient may take 2 naps afternoon. PAST MEDICAL HISTORY: Hypertension, diabetes mellitus, Parkinson's disease, acid reflux, coronary artery disease, atherosclerosis. PAST SURGICAL HISTORY: Brain surgery for Parkinson disease, stent insertion to coronary artery, aorta and arteries. MEDICATIONS: Metformin, lisinopril, pantoprazole, ropinirole, metoprolol, clopidogrel, aspirin, amlodipine, tamsulosin. SOCIAL HISTORY: Positive for smoking 50 pack years, quit, no recent alcohol consumption. FAMILY HISTORY: Cancer, diabetes, thyroid problems. REVIEW OF SYSTEMS: Loud snoring, multiple awakenings from sleep, sleepiness during the day. No fevers. No double vision. No recent chest pain. No shortness of breath. No abdominal pain. No bleeding episodes. No blood in urine. No seizure episodes. PHYSICAL EXAMINATION: GENERAL: A pleasant patient without any distress. VITAL SIGNS: BP 118/74, HR 63, RR 16, weight 235.0 pounds, height 5 foot 11-1/2 inches, body mass index 32.3. HEENT: PERRLA, EOMI. Evaluation of oropharynx showed tongue protrudes midline, low position of soft palate Mallampati 4. NECK: Supple. No JVD. Thyroid is not palpable. 19 inches in circumference. LUNGS: Clear to percussion and to auscultation. Good air exchange. No wheezing or rhonchi. HEART: S1, S2 regular. No murmurs, gallops or rubs. ABDOMEN: Soft and nontender. Bowel sounds are present. No organomegaly appreciated. EXTREMITIES: No clubbing or cyanosis. SCREEN PRINTING SUPERVISOR: Awake, alert, and oriented x3. Cranial nerves 2 to 7 intact. There is no fasciculation or atrophy noted. No focal deficits observed. ASSESSMENT: 1. Loud snoring, multiple awakenings from sleep, extremely low position of soft palate Mallampati 4, wide neck 19 inches in circumference, sleepiness [place] Sleepiness Scale is 12. Obstructive sleep apnea hypopnea syndrome. 2. Mild obesity body mass index 32.3. 3. Hypertension. 4. Parkinson's disease, status post brain surgery. 5 coronary artery disease, status post stent insertion. 6 . History of [id number] smoking, possible emphysema. 7. Diabetes mellitus. 8. Status post stent insertion to aorta and iliac arteries. PLAN: 1. Polysomnography for evaluation of patient's breathing during sleep. 2. CPAP/BiPAP titration if sleep study confirms obstructive sleep apnea- hypopnea syndrome. 3. Preferable position during sleep on the side. 4. No driving if patient feels any sleepiness. Patient is aware of civil and criminal liability for unsafe driving. 5. Sleep hygiene with regular sleep time for at least 7.5-8 hours. 6. Watching weight. Thank you very much for referring this patient for consultation. Sincerely, Sung Zarate MD, PhD, FAASM. Diplomat of [place] [employer], Sleep Medicine Board by [place] [employer] [place] [employer] Treating Plant Supervisor of [facility] Past Medical History Past Medical History: Asthma, GERD/Reflux, Hyperlipidemia, Hypertension, Prostate Disorder, Sleep Apnea/CPAP/BIPAP Additional Past Medical History / Comment(s): ABD ANEURYSM. History of Any Multi-Drug Resistant Organisms: None Reported Past Surgical History: Hernia Repair, Orthopedic Surgery Additional Past Surgical History / Comment(s): RIGHT ROTATOR CUFF X 2. Deep brain stimulator, aaa stent, and vascular stents Past Anesthesia/Blood Transfusion Reactions: No Reported Reaction Additional Past Anesthesia/Blood Transfusion Reaction / Comment(s): claustrophobic Past Psychological History: No Psychological Hx Reported Smoking Status: Former smoker Past Alcohol Use History: None Reported Past Drug Use History: None Reported - Past Family History Father Family Medical History: Cancer Additional Family Medical History / Comment(s): mesothelioma Medications and Allergies Home Medications Medication Instructions Recorded Confirmed Type buPROPion HCL [buPROPion HCL XL] 150 mg PO DAILY 03/25/16 03/31/22 History Clopidogrel [Plavix] 75 mg PO DAILY 05/30/17 03/31/22 History Oxybutynin Chloride [Ditropan XL] 10 mg PO DAILY 05/30/17 03/31/22 History Tamsulosin [Flomax] 0.4 mg PO DAILY 05/30/17 03/31/22 History Atorvastatin [Lipitor] 40 mg PO HS 03/31/22 03/31/22 History Pantoprazole Sodium [Protonix] 40 mg PO BID 03/31/22 03/31/22 History lisinopriL [Prinivil] 20 mg PO BID 03/31/22 03/31/22 History metFORMIN HCL 500 mg PO HS 03/31/22 03/31/22 History rOPINIRole HCL [Requip XL] 2 mg PO HS 03/31/22 03/31/22 History Acetaminophen Tab [Tylenol] 650 mg PO Q6HR PRN tab 04/03/22 Rx Aspirin 81 mg PO DAILY #30 tab 04/03/22 Rx Isosorbide Mononitrate ER [Imdur] 30 mg PO DAILY #30 tab 04/03/22 Rx Metoprolol Succinate (ER) [Toprol 50 mg PO DAILY #30 tab 04/03/22 Rx XL] Nitroglycerin 0.4 mg SL Q5M #100 tab 04/03/22 Rx Allergies Allergy/AdvReac Type Severity Reaction Status Date / Time levofloxacin [From Levaquin] Allergy Rash/Hives Verified 03/31/22 13:13 ibuprofen [From Motrin] AdvReac Rapid Verified 03/31/22 13:13 Heart Rate Sleep Note - Sleep Note Sleep Note: Temperature: Pulse Rate: Respiratory Rate: Blood Pressure: SpO2: Height: Weight: BMI: Neck Circumference:
== END ==
LOC: SLEEP 13:57
PROVIDERS: ATTEND Internal Medicine
DX: G47.33 Obstructive sleep apnea (adult) (pediatric) (principal); E66.9 Obesity, unspecified; Z68.32 Body mass index [BMI] 32.0-32.9, adult; I10 Essential (primary) hypertension; G20 Parkinson's disease; I25.10 Atherosclerotic heart disease of native coronary artery without angina pectoris; E11.9 Type 2 diabetes mellitus without complications; Z95.820 Peripheral vascular angioplasty status with implants and grafts; Z48.811 Encounter for surgical aftercare following surgery on the nervous system; Z95.5 Presence of coronary angioplasty implant and graft; Z79.84 Long term (current) use of oral hypoglycemic drugs; Z79.899 Other long term (current) drug therapy; Z79.82 Long term (current) use of aspirin; Z79.4 Long term (current) use of insulin; Z88.6 Allergy status to analgesic agent; Z88.1 Allergy status to other antibiotic agents; F17.200 Nicotine dependence, unspecified, uncomplicated
CPT/HCPCS: 99211

== ENCOUNTER → 2022-10-04 | Outpatient (CLI) | payer BC ==
--- NOTE | 2022-10-04 19:30 | CT ---
EXAMINATION TYPE: CT abdomen w con CT DLP: 1616.5 mGycm, Automated exposure control for dose reduction was used. DATE OF EXAM: 10/04/2022 7:07 PM COMPARISON: CT abdomen pelvis most recent from 05/07/2018 CLINICAL INDICATION:Male, 66 years old with history of I71.40; Follow up for aortic aneurysm. TECHNIQUE: Axial CT of the abdomen. Sagittal and coronal reformats [facility] Contrast used:80cc mL of Isovue 300 with IV Contrast, Oral contrast used: with Oral Contrast FINDINGS: LOWER CHEST: Unremarkable ABDOMEN LIVER: Unremarkable GALLBLADDER AND BILE DUCTS: Unremarkable. PANCREAS: Unremarkable. SPLEEN: Unremarkable. ADRENAL GLANDS: Unremarkable. KIDNEYS AND URETERS: Nonobstructive 2 mm calculus versus renal sinus atherosclerosis on the left. No Mallard nephrosis seen bilaterally. PELVIS BLADDER: Unremarkable REPRODUCTIVE: Unremarkable. ABDOMEN & PELVIS STOMACH AND BOWEL: No evidence of bowel obstruction. PERITONEUM/RETROPERITONEUM: No evidence of pneumoperitoneum or free fluid. VASCULATURE: Aortobiiliac stent graft appears patent. The excluded lumen does not demonstrate evidenc e for endoleak. There is mild mural thrombus in the proximal stent graft. The common iliac arteries a ppear patent. There is partial visualization of the external and internal iliac stent grafts on the r ight which appear patent. MUSCULOSKELETAL: No acute osseous abnormalities LYMPH NODES: No gross evidence for lymphadenopathy. SOFT TISSUE/ABDOMINAL WALL: Unremarkable IMPRESSION: Aortobiiliac stent graft which is patent. Mild proximal mural thrombus is present. Partially visualiz ed bilateral common iliac stent grafts as well as the partially visualized right external and interna l iliac stent grafts appear patent. No evidence for endoleak. Findings aren't significantly changed f rom 2018.
== END | disposition home or self-care (01) ==
LOC: RADCTMAIN 17:15
PROVIDERS: ATTEND Family Medicine
DX: I71.40 Abdominal aortic aneurysm, without rupture, unspecified (principal); I51.3 Intracardiac thrombosis, not elsewhere classified; Z95.820 Peripheral vascular angioplasty status with implants and grafts
CPT/HCPCS: 82565; 84520; 74160; 36415; Q9967

== ENCOUNTER → 2022-11-10 | Outpatient (CLI) | payer BC ==
--- NOTE | 2022-11-10 15:47 | P.PN ---
Subjective DATE: 11/10/2022 FOLLOW UP VISIT. Patient with obstructive sleep apnea hypopnea syndrome return to sleep center for follow-up visit. Recently patient had sleep study which documented obstructive sleep apnea hypopnea syndrome. Patient was initiated on PAP therapy and today is first visit after treatment was started. I discuss results of sleep studies with patient in details. Patient was able to use PAP equipment every night for the whole night. The patient does not have significant problems with the mask, PAP pressure and humidification. [place] sleepiness scale is 7, which is normal. Patient feels better while using CPAP equipment comparing with the previous time. I checked information from PAP unit. PAP unit pressure 5-13, average 12.3 cm H2O. Usage is 97% and 77 % for more then 4 hours, average 4.7 hours per night. Leak is 9.4 l/m, which is in acceptable range. Apnea Hypopnea Index is 5.6, which is borderline. MEDICATIONS:1. Metformin 2. Lisinopril 3. Pantoprazole 4. Ropinirole 5. Metoprolol 6. Clopidogrel 7. Amlodipine 8. Flomax During physical exam: GENERAL: A pleasant patient without any distress. VITAL SIGNS: BP 118/75, HR 69, RR 16 , weight 236.2, temperature 97.5, oxygen saturation at room air 95% . HEENT: PERRLA, EOMI.low position of soft palate, Mallapati 4 . NECK: Supple. No JVD. LUNGS: Clear to percussion and to auscultation. Good air exchange. No wheezing or rhonchi. HEART: S1, S2 regular. ABDOMEN: Soft and nontender.[] EXTREMITIES: No clubbing or cyanosis. CONTROLS OPERATOR MOLDED GOODS: Awake, alert, and oriented x3. No focal deficit. Impressions: 1. Severe Obstructive sleep apnea-hypopnea syndrome with apnea-hypopnea index 71.7. Patient demonstrated great compliance with treatment, benefiting from treatment. 2. Hypertension. 3. Parkinson's disease, status post brain surgery. 4. Coronary artery disease, status post stent insertion. 5. History of 50 pack year smoking, possible emphysema. 6. Diabetes mellitus. 7. Status post stent insertion to aorta, and iliac arteries. I changed level of pressure to the range 5-14 cm of water. Plan: 1. Continue using PAP equipment every night for the whole night. 2. To change air filter at least 1-2 times per month. 3. PAP unit should stay lower then position of the head. 4. Advised patient to remove all remaining water from humidifier canister daily and make it dry after each usage. Refill canister with fresh distilled water before each usage. 5. Sleep hygiene with regular time in bed for at least 8 hours. 6. Precautions related to driving. No driving if feel any sleepiness. 7. I will maintain prescription for PAP supplies including mask, tube, filters. 8. Follow up visit in 6 months or earlier if patient has any problems. 9. Watching and losing weight. Thank you very much for allowing me to participate in the management of your patient. Sung Zarate MD, PhD, FAASM. Diplomat of [place] [employer], Sleep Medicine Board by [place] [employer] Jewelry Making Instructor of [facility]
== END ==
LOC: 3 N SLEEP 14:12
PROVIDERS: ATTEND Internal Medicine
DX: G47.33 Obstructive sleep apnea (adult) (pediatric) (principal); E11.9 Type 2 diabetes mellitus without complications; I10 Essential (primary) hypertension; F17.200 Nicotine dependence, unspecified, uncomplicated; G20 Parkinson's disease; I25.10 Atherosclerotic heart disease of native coronary artery without angina pectoris; Z95.5 Presence of coronary angioplasty implant and graft; Z99.89 Dependence on other enabling machines and devices; Z88.1 Allergy status to other antibiotic agents; Z98.890 Other specified postprocedural states; Z88.6 Allergy status to analgesic agent
CPT/HCPCS: 99212

== ENCOUNTER → 2022-12-16 | Outpatient (CLI) | payer BC ==
[2022-12-16 14:05] LABS: African American GFR (CKD) 49 (>60 ml/min/1.73 sqM); Blood Urea Nitrogen 36 mg/dL (9-20); Non-African American GFR(CKD) 42 (>60 ml/min/1.73 sqM)
--- NOTE | 2022-12-16 16:47 | CT ---
EXAMINATION TYPE: CT angio abdomen pelvis DATE OF EXAM: 12/16/2022 COMPARISON: 6 10/04/2022 INDICATION: AAA with stent DLP: 1876.7 mGycm, Automated exposure control for dose reduction was used. CONTRAST: 50 mL of Isovue 370. Study performed without Oral Contrast TECHNIQUE: Axial images were obtained from above the diaphragm to the pubic rami in the axial plane a t 5 mm thick sections. Reconstructed images are reviewed on the computer in the coronal plane. FINDINGS: Limited CT sections are obtained the lung bases. The lung bases are clear. CT ABDOMEN: Liver: There may be some mild diffuse fatty infiltration of liver. Spleen: Normal Pancreas: Normal Adrenal glands: The adrenal glands are normal. Gallbladder: Normal Kidneys: No masses are evident. No hydronephrosis is present. No cysts are present. Delayed images were obtained through the kidneys, which remain unremarkable. Aorta: Vascular calcification is within the aorta. There is an abdominal aortic aneurysm which appea rs decompressed with stent placement. The iliac limbs are patent. No extravasation of contrast is yon dent. No endovascular leak is appreciated. Right common iliac vessel is prominent at 2.1 cm. Maximu m transverse dimension of the abdominal aortic aneurysm is 4.2 cm, this is infrarenal. Internal and e xternal iliac vessels are patent. Inferior vena cava: Normal. CT PELVIS: Loops of bowel within the abdomen and pelvis are normal. Studies without oral contrast limiting b owel evaluation. Appendix: Normal as visualized. Urinary bladder: Normal. Genitourinary structures: Prostate is normal. Prostate calcification is present Osseous structures: No suspicious lytic or sclerotic lesions. IMPRESSIONS: 1. Stented abdominal aortic aneurysm. No endovascular leak is appreciated.
== END | disposition home or self-care (01) ==
LOC: RADCTMAIN 13:09
PROVIDERS: ATTEND Surgery
DX: I71.43 Infrarenal abdominal aortic aneurysm, without rupture (principal); I70.213 Atherosclerosis of native arteries of extremities with intermittent claudication, bilateral legs
CPT/HCPCS: 82565; 84520; 36415; 74174; Q9967

== ENCOUNTER 2023-05-17 16:13 | Emergency (ER) | payer BC ==
--- NOTE | 2023-05-17 16:48 | ED ---
SOB HPI - General Chief Complaint: Shortness of Breath Stated Complaint: SOB, COVID+ Time Seen by Provider: 05/17/23 16:35 Source: patient, family, RN notes reviewed, old records reviewed Mode of arrival: ambulatory Limitations: no limitations - History of Present Illness Initial Comments: 67-year-old male presents to the emergency room with family stating he was sent by his primary care doctor after diagnosed with covid today. Patient had a chest x-ray in the office states showing no evidence of pneumonia. He was prescribed and given a dose of paxlovid in office. Patient states his oxygen saturation was in the 80s in the office therefore was directed to come to the emergency room. On arrival patient oxygen saturation 95% on room air. No re spiratory distress. He states he has been vaccinated against coronavirus with boosters. Denies any fevers. Does have occasional cough with postnasal drip. Has not been using his albuterol. Did have covid infection in 2020. MD Complaint: shortness of breath, cough -: days(s) (3) Severity scale (1-10): 0 Improves With: rest Worsens With: exertion Known History Of: asthma Context: recent illness (covid positive today) Associated Symptoms: cough, sputum production, other (myalgia) Treatments Prior to Arrival: other (paxlovid, chest xr at office) - Related Data Home Oxygen Therapy: No Home Medications Medication Instructions Recorded Confirmed buPROPion HCL [buPROPion HCL XL] 150 mg PO DAILY 03/25/16 03/31/22 Clopidogrel [Plavix] 75 mg PO DAILY 05/30/17 03/31/22 Tamsulosin [Flomax] 0.4 mg PO DAILY 05/30/17 03/31/22 oxyBUTYnin chloride [Ditropan XL] 10 mg PO DAILY 05/30/17 03/31/22 Atorvastatin [Lipitor] 40 mg PO HS 03/31/22 03/31/22 Pantoprazole Sodium [Protonix] 40 mg PO BID 03/31/22 03/31/22 lisinopriL [Prinivil] 20 mg PO BID 03/31/22 03/31/22 metFORMIN HCL 500 mg PO HS 03/31/22 03/31/22 rOPINIRole HCL [Requip XL] 2 mg PO HS 03/31/22 03/31/22 Previous Rx's Medication Instructions Recorded Acetaminophen Tab [Tylenol] 650 mg PO Q6HR PRN tab 04/03/22 Aspirin 81 mg PO DAILY #30 tab 04/03/22 Isosorbide Mononitrate ER [Imdur] 30 mg PO DAILY #30 tab 04/03/22 Metoprolol Succinate (ER) [Toprol 50 mg PO DAILY #30 tab 04/03/22 XL] Nitroglycerin 0.4 mg SL Q5M #100 tab 04/03/22 dexAMETHasone [Decadron] 6 mg PO DAILY 4 Days #4 tablet 05/17/23 Allergies Allergy/AdvReac Type Severity Reaction Status Date / Time levofloxacin [From Levaquin] Allergy Rash/Hives Verified 05/17/23 16:24 ibuprofen [From Motrin] AdvReac Rapid Verified 05/17/23 16:24 Heart Rate Review of Systems ROS Statement: Those systems with pertinent positive or pertinent negative responses have been documented in the HPI. ROS Other: All systems not noted in ROS Statement are negative. Past Medical History Past Medical History: Asthma, GERD/Reflux, Hyperlipidemia, Hypertension, Prostate Disorder, Sleep Apnea/CPAP/BIPAP Additional Past Medical History / Comment(s): ABD ANEURYSM. History of Any Multi-Drug Resistant Organisms: None Reported Past Surgical History: Hernia Repair, Orthopedic Surgery Additional Past Surgical History / Comment(s): RIGHT ROTATOR CUFF X 2. Deep brain stimulator, aaa stent, and vascular stents Past Anesthesia/Blood Transfusion Reactions: No Reported Reaction Additional Past Anesthesia/Blood Transfusion Reaction / Comment(s): claustrophob ic Past Psychological History: No Psychological Hx Reported Smoking Status: Former smoker Past Alcohol Use History: None Reported Past Drug Use History: None Reported - Past Family History Father Family Medical History: Cancer Additional Family Medical History / Comment(s): mesothelioma General Exam Limitations: no limitations General appearance: alert, in no apparent distress Head exam: Present: atraumatic Eye exam: Absent: scleral icterus, conjunctival injection, periorbital swelling ENT exam: Present: normal oropharynx, mucous membranes moist Neck exam: Absent: meningismus, lymphadenopathy, thyromegaly Respiratory exam: Present: normal lung sounds bilaterally. Absent: respiratory distress, wheezes, rales, rhonchi, stridor, chest wall tenderness, accessory muscle use, decreased breath sounds Cardiovascular Exam: Present: regular rate, normal rhythm GI/Abdominal exam: Present: soft. Absent: tenderness Extremities exam: Present: full ROM, normal capillary refill. Absent: tenderness, pedal edema Back exam: Absent: CVA tenderness (R), CVA tenderness (L), vertebral tenderness Neurological exam: Present: alert, oriented X3 Psychiatric exam: Present: normal affect, normal mood Skin exam: Present: warm, dry, normal color. Absent: cyanosis, diaphoretic, petechiae, pallor Course Vital Signs 05/17/23 05/17/23 16:23 16:56 Temperature 98.6 F Pulse Rate 78 Respiratory 18 24 Rate Blood Pressure 100/62 O2 Sat by Pulse 95 93 L Oximetry Medical Decision Making - Medical Decision Making Was pt. sent in by a medical professional or institution (, PA, MOLECULAR GENETIC PATHOLOGIST, urgent care, hospital, or jail...) When possible be specific @ -PCP Did you speak to anyone other than the patient for history (EMS, parent, family, police, friend...)? What history was obtained from this source @ - states pulse ox in office in 80's Did you review nursing and triage notes (agree or disagree)? Why? @ -[I reviewed and agree with nursing and triage notes] Were old charts reviewed (outside hosp., previous admission, EMS record, old EKG, old radiological studies, urgent care reports/EKG's, jail records)? Report findings @ -[No old charts were reviewed] Differential Diagnosis (chest pain, altered mental status, abdominal pain women, abdominal pain men, vaginal bleeding, weakness, fever, dyspnea, syncope, headache, dizziness, GI bleed, back pain, seizure, CVA, palpatations, mental health, musculoskeletal)? @ -Covid, pneumonia, asthma exacerbation, EKG interpreted by me (3pts min.). @ -n/a X-rays interpreted by me (1pt min.). @ -yes, X-ray interpreted by me shows mild infiltrate right base likely viral due to patient's positive Covid test. CT interpreted by me (1pt min.). @ -[None done] U/S interpreted by me (1pt. min.). @ -[None done] What testing was considered but not performed or refused? (CT, X-rays, U/S, labs)? Why? @ -[None] What meds were considered but not given or refused? Why? @ -antibiotics considered however pt is covid positive, likely viral Did you discuss the management of the patient with other professionals i.e. , PA, MOLECULAR GENETIC PATHOLOGIST, lab, RT, psych nurse, mental health social worker, claim professional, teachentibiotiarole officer, medical case manager)? Give summary @ -[No] Was smoking cessation discussed for >3mins.? @ -[No] Was critical care preformed (if so, how long)? @ -[No] Were there social determinants of health that impacted care today? How? (Homelessness, low income, unemployed, alcoholism, drug addiction, transportation, low edu. Level, literacy, decrease access to med. care, fci, rehab)? @ -[No] Was there de-escalation of care discussed even if they declined (Discuss DNR or withdrawal of care, Hospice)? DNR status @ -[No] What co-morbidities impacted this encounter? (DM, HTN, Smoking, COPD, CAD, Cancer, CVA, ARF, Chemo, Hep., AIDS, mental health diagnosis, sleep apnea, morbid obesity)? @ -asthma,, HTN Was patient admitted / discharged? Hospital course, mention meds given and route, prescriptions, significant lab abnormalities, going to OR and other pertinent info. @ -discharged 67-year-old male presents to the emergency room with family stating he was sent by his primary care doctor after diagnosed with covid today. Patient had a chest x-ray in the office states showing no evidence of pneumonia. He was prescribed and given a dose of paxlovid in office. Patient states his oxygen saturation was in the 80s in the office therefore was directed to come to the emergency room. On arrival patient oxygen saturation 95% on room air. No respiratory distress. He states he has been vaccinated against coronavirus with boosters. Denies any fevers. Does have occasional cough with postnasal drip. Has not been using his albuterol. Did have covid infection in 2020. Ambulatory pulse ox 93% on room air. Case discussed with Dr. Prescott and chest x-ray repeated as we do not have the results from xr in office today. Radiologist's interpretation subtle infiltrate right base findings could be related to subsegmental atelectasis or atypical pneumonia. Dr. Prescott recommended Decadron 6 mg daily 5 days. Patient is agreeable to discharge. Discharged home with family in no distress and nontoxic appearing. Undiagnosed new problem with uncertain prognosis? @ -[No] Drug Therapy requiring intensive monitoring for toxicity (Heparin, Nitro, Insulin, Cardizem)? @ -[No] Were any procedures done? @ -[No] Diagnosis/symptom? @ -Covid 19, viral URI Acute, or Chronic, or Acute on Chronic? @ -acute Uncomplicated (without systemic symptoms) or Complicated (systemic symptoms)? @ -uncomplicated Side effects of treatment? @ -[No] Exacerbation, Progression, or Severe Exacerbation? @ -[No] Poses a threat to life or bodily function? How? (Chest pain, [place], [place], pneumonia, PE, COPD, DKA, ARF, appy, cholecystitis, CVA, Diverticulitis, Homicidal, Suicidal, threat to staff... and all critical care pts) @ -[No] Disposition Clinical Impression: COVID-19, Asthma Disposition: HOME SELF-CARE Condition: Good Instructions (If sedation given, give patient instructions): Asthma (ED), COVID-19 (Coronavirus Disease 2019) (ED), Face Coverings (Masks) and COVID-19 (ED) Additional Instructions: Please wear a mask for 5 days from symptom onset. If after 5 days you no longer have symptoms you can go into public wearing just a mask. Use your albuterol inhaler 1-2 puffs every 4 hours as needed. Take the Paxlovid as prescribed. Tylenol as needed for body aches. Increase your fluid intake. Return to the ER if worsening symptoms and f/u with your PCP next week. Prescriptions: dexAMETHasone [Decadron] 6 mg PO DAILY 4 Days #4 tablet Is patient prescribed a controlled substance at d/c from ED?: No Referrals: Marty Garcia MD [Primary Care Provider] - 1-2 days Time of Disposition: 17:47
--- NOTE | 2023-05-17 17:39 | XR ---
EXAMINATION TYPE: XR chest 2V DATE OF EXAM: 05/17/2023 COMPARISON: 03/31/2022 INDICATION: Short of breath,: TECHNIQUE: Frontal and lateral views of the chest are obtained. FINDINGS: The heart size is normal. The pulmonary vasculature is normal. Some very subtle infiltrate may be at the right base. Lungs otherwise appear clear. Pacemaker overli es the left chest. IMPRESSION: 1. Subtle infiltrate right base. Findings could be related to subsegmental atelectasis or atypical pn eum[place]
[2023-05-17] MEDS ORDERED: dexAMETHasone 2 MG TAB PO STA (17:52)
[2023-05-17 18:48] VITALS: BP 125/65; PULSE 74; RESP 18; TEMP 98.7
== END 2023-05-17 18:30 | disposition home or self-care (01) ==
LOC: EC 16:13
DX: U07.1 COVID-19 (principal); I10 Essential (primary) hypertension; J45.909 Unspecified asthma, uncomplicated; E78.5 Hyperlipidemia, unspecified; G47.30 Sleep apnea, unspecified; K21.9 Gastro-esophageal reflux disease without esophagitis; Z79.02 Long term (current) use of antithrombotics/antiplatelets; Z79.84 Long term (current) use of oral hypoglycemic drugs; Z79.899 Other long term (current) drug therapy; Z87.891 Personal history of nicotine dependence; Z88.1 Allergy status to other antibiotic agents; Z88.6 Allergy status to analgesic agent
CPT/HCPCS: 71046; 99284; J8540

== ENCOUNTER 2023-09-27 10:20 | Emergency (ER) | payer BC ==
--- NOTE | 2023-09-27 10:42 | ED ---
General Adult HPI - General Source: patient, RN notes reviewed Mode of arrival: wheelchair Limitations: no limitations <Kan Parrish - Last Filed: 09/27/23 10:39> - General Source: patient, RN notes reviewed, old records reviewed <Domingo Dutta - Last Filed: 09/27/23 14:18> - General Chief complaint: Shortness of Breath Stated complaint: SOB Time Seen by Provider: 09/27/23 10:30 - History of Present Illness Initial comments: Quick [id number] male presents emergency department complaint shortness of breath he had increasing shortness of breath the last month. He does have a history of COPD states he has an essentially nonproductive cough states he feels like he has a large amount of chest congestion some discomfort. Patient does h ave a history of Parkinson's does have a stimulator. Patient denies any leg pain or leg swelling (Kan Parrish) Patient is a 67-year-old male with past medical history remarkable for COPD who presents emergency department for 1 month of worsening shortness of breath. Has had a continuous nonproductive cough with chest tightness. Has a history of a nerve stimulator for Parkinson's. Was on prednisone as well as inhaler and antibiotics approximately 3 to 4 weeks ago per patient however nothing recently. States symptoms have returned resents for further evaluation. Originally seen as a quick note. I evaluated the patient when he was placed in room 32. ( Domingo Dutta) - Related Data Home Medications Medication Instructions Recorded Confirmed buPROPion HCL [buPROPion HCL XL] 150 mg PO DAILY 03/25/16 03/31/22 Clopidogrel [Plavix] 75 mg PO DAILY 05/30/17 03/31/22 Tamsulosin [Flomax] 0.4 mg PO DAILY 05/30/17 03/31/22 oxyBUTYnin chloride [Ditropan XL] 10 mg PO DAILY 05/30/17 03/31/22 Atorvastatin [Lipitor] 40 mg PO HS 03/31/22 03/31/22 Pantoprazole Sodium [Protonix] 40 mg PO BID 03/31/22 03/31/22 lisinopriL [Prinivil] 20 mg PO BID 03/31/22 03/31/22 metFORMIN HCL 500 mg PO HS 03/31/22 03/31/22 rOPINIRole HCL [Requip XL] 2 mg PO HS 03/31/22 03/31/22 Previous Rx's Medication Instructions Recorded Acetaminophen Tab [Tylenol] 650 mg PO Q6HR PRN tab 04/03/22 Aspirin 81 mg PO DAILY #30 tab 04/03/22 Isosorbide Mononitrate ER [Imdur] 30 mg PO DAILY #30 tab 04/03/22 Metoprolol Succinate (ER) [Toprol 50 mg PO DAILY #30 tab 04/03/22 XL] Nitroglycerin 0.4 mg SL Q5M #100 tab 04/03/22 dexAMETHasone [Decadron] 6 mg PO DAILY 4 Days #4 tablet 05/17/23 Albuterol Inhaler [Ventolin Hfa 1 - 2 puff INHALATION Q6H PRN #1 09/27/23 Inhaler] each Azithromycin [Zithromax] 250 mg PO DAILY 4 Days #4 tab 09/27/23 Magnesium Oxide [Magnesium] 500 mg PO DAILY 3 Days #3 cap 09/27/23 predniSONE [Deltasone] 40 mg PO DAILY 5 Days #10 tab 09/27/23 Allergies Allergy/AdvReac Type Severity Reaction Status Date / Time levofloxacin [From Levaquin] Allergy Rash/Hives Verified 09/27/23 10:38 ibuprofen [From Motrin] AdvReac Rapid Verified 09/27/23 10:38 Heart Rate Review of Systems ROS Other: All systems not noted in ROS Statement are negative. <Kan Parrish - Last Filed: 09/27/23 10:39> ROS Other: All systems not noted in ROS Statement are negative. <Domingo Dutta - Last Filed: 09/27/23 14:18> ROS Statement: Those systems with pertinent positive or pertinent negative responses have been documented in the HPI. Review of Systems: CONST: Denies fever EYES: Denies blurry vision ENT: Denies nasal congestion C/V: Denies Chest pain RESP: Endorses cough, congestion GI: Denies abdominal pain : Denies dysuria SKIN: Denies rash. MSK: Denies joint pain. NEURO: Denies headache (Domingo Dutta) Past Medical History Past Medical History: Asthma, GERD/Reflux, Hyperlipidemia, Hypertension, Prostate Disorder, Sleep Apnea/CPAP/BIPAP Additional Past Medical History / Comment(s): ABD ANEURYSM. History of Any Multi-Drug Resistant Organisms: None Reported Past Surgical History: Hernia Repair, Orthopedic Surgery Additional Past Surgical History / Comment(s): RIGHT ROTATOR CUFF X 2. Deep brain stimulator, aaa stent, and vascular stents Past Anesthesia/Blood Transfusion Reactions: No Reported Reaction Additional Past Anesthesia/Blood Transfusion Reaction / Comment(s): claustrophobic Past Psychological History: No Psychological Hx Reported Smoking Status: Former smoker Past Alcohol Use History: None Reported Past Drug Use History: None Reported - Past Family History Father Family Medical History: Cancer Additional Family Medical History / Comment(s): mesothelioma <Kan Parrish - Last Filed: 09/27/23 10:39> General Exam Limitations: no limitations General appearance: alert, in no apparent distress <Kan Parrish - Last Filed: 09/27/23 10:39> <Domingo Dutta - Last Filed: 09/27/23 14:18> - General Exam Comments Initial Comments: Visual Physical Exam Vital signs reviewed General: Well-appearing, nontoxic, no acute distress. Head: Normocephalic, atraumatic Eyes: PERRLA, EOMI ENT: Airway patent Chest: Nonlabored breathing Skin: No visual rash, normal skin tone Neuro: Alert and oriented 3 Musculoskeletal: No gross abnormalities (Kan Parrish) General: Appears in no acute distress. HEAD: Normal with no signs of head trauma. EYES: PERRLA, EOMI ENT: Hearing grossly intact, normal oropharynx. RESPIRATORY: Bilateral end expiratory wheezing. No hypoxia. No significant increased work of breathing at this time. C/V: Regular rate and rhythm. S1 and S2 auscultated, no edema, peripheral pulses 2+ and intact throughout ABD: Abd is soft, nontender, nondistended EXT: Normal range of motion, no obvious deformity SKIN: No rashes or lesions observed on exposed skin. NEURO: Alert and oriented x 4. (Domingo Dutta) Course Vital Signs 09/27/23 09/27/23 09/27/23 10:32 12:01 13:36 Temperature 97.8 F Pulse Rate 62 75 Respiratory 20 18 18 Rate Blood Pressure 117/75 O2 Sat by Pulse 97 Oximetry 09/27/23 09/27/23 13:43 13:57 Temperature 98 F Pulse Rate 77 66 Respiratory 16 18 Rate Blood Pressure 120/84 O2 Sat by Pulse 97 Oximetry Medical Decision Making <Kan Parrish - Last Filed: 09/27/23 10:39> - Lab Data Result diagrams: 09/27/23 10:54 09/27/23 10:54 - EKG Data -: EKG Interpreted by Me <Domingo Dutta - Last Filed: 09/27/23 14:18> - Medical Decision Making I completed the quick note portion of this chart signed Kan Parrish PA-C (Kan Parrish) Was pt. sent in by a medical professional or institution (, PA, CLINICAL SOCIAL WORK AIDE, urgent care, hospital, or longterm...) When possible be specific @ -No Did you speak to anyone other than the patient for history (EMS, parent, family, police, friend...)? What history was obtained from this source @ -No Did you review nursing and triage notes (agree or disagree)? Why? @ -I reviewed and agree with nursing and triage notes Were old charts reviewed (outside hosp., previous admission, EMS record, old EKG, old radiological studies, urgent care reports/EKG's, longterm records)? Report findings @ -Old charts reviewed Differential Diagnosis (chest pain, altered mental status, abdominal pain women, abdominal pain men, vaginal bleeding, weakness, fever, dyspnea, syncope, headache, dizziness, GI bleed, back pain, seizure, CVA, palpatations, mental health, musculoskeletal)? @ -COPD, pneumonia, viral syndrome. This list is not all inclusive. EKG interpreted by me (3pts min.). @ -As above X-rays interpreted by me (1pt min.). @ -Chest x-ray reveals no obvious acute cardiopulmonary process. CT interpreted by me (1pt min.). @ -None done U/S interpreted by me (1pt. min.). @ -None done What testing was considered but not performed or refused? (CT, X-rays, U/S, labs)? Why? @ -None What meds were considered but not given or refused? Why? @ -None Did you discuss the management of the patient with other professionals (professionals i.e. , PA, CLINICAL SOCIAL WORK AIDE, lab, RT, psych nurse, oncology social worker, gluing pressman, teacher, client sales and service officer, case mgr)? Give summary @ -No Was smoking cessation discussed for >3mins.? @ -No Was critical care preformed (if so, how long)? @ -No Were there social determinants of health that impacted care today? How? (Homelessness, low income, unemployed, alcoholism, drug addiction, transportation, low edu. Level, literacy, decrease access to med. care, nursing home, rehab)? @ -No Was there de-escalation of care discussed even if they declined (Discuss DNR or withdrawal of care, Hospice)? DNR status @ -No What co-morbidities impacted this encounter? (DM, HTN, Smoking, COPD, CAD, Cancer, CVA, ARF, Chemo, Hep., AIDS, mental health diagnosis, sleep apnea, morbi d obesity)? @ -COPD Was patient admitted / discharged? Hospital course, mention meds given and rout e, prescriptions, significant lab abnormalities, going to OR and other pertinent info. @ -Based on the patient's presentation and physical exam, presents emergency department for productive cough, as well as chest congestion. Worsening wheezing. Presents for further evaluation at this time. Vital signs are within acceptable limits. Patient started as a quick note. Labs returned remarkable for leukocytosis of 13, hypomagnesemia of 1. Supplementation sent to the patient's pharmacy. Troponin undetectable. BNP within normal limits. Chronic CKD. Viral swabs negative. Chest x-ray unremarkable. I did order the patient IV steroids, dose of antibiotics for tracheobronchitis, as well as a breathing treatment. On reevaluation after treatment, patient feels improved and would like to go home. I believe this is reasonable. Vital signs remained within acceptable limits. Wheezing has improved at this time. I will provide the patient with a [facility], magnesium, prednisone. I instructed the patient to follow up with their PCP in the next 1-3 days.. I explained that the patient should return to the emergency department if they experience any worsening symptoms. Strict return precautions were discussed with the patient. The patient expressed understanding of these instructions. I answered all questions that the patient had. The patient was discharged home in good condition with their prescriptions and follow up information. Undiagnosed new problem with uncertain prognosis? @ -No Drug Therapy requiring intensive monitoring for toxicity (Heparin, Nitro, Insulin, Cardizem)? @ -No Were any procedures done? @ -No Diagnosis/symptom? @ -COPD, tracheobronchitis Acute, or Chronic, or Acute on Chronic? @ -Acute Uncomplicated (without systemic symptoms) or Complicated (systemic symptoms)? @ -Uncomplicated Side effects of treatment? @ -No Exacerbation, Progression, or Severe Exacerbation? @ -No Poses a threat to life or bodily function? How? (Chest pain, [place], [place], pneumonia, PE, COPD, DKA, ARF, appy, cholecystitis, CVA, Diverticulitis, Homicidal, Suicidal, threat to staff... and all critical care pts) @ -No (Domingo Dutta) - Lab Data Lab Results 09/27/23 09/27/23 09/27/23 Range/Units 10:54 10:54 10:54 WBC 13.1 H (3.8-10.6) k/uL RBC 4.20 L (4.30-5.90) m/uL Hgb 13.4 (13.0-17.5) gm/dL Hct 38.9 L (39.0-53.0) % MCV 92.5 (80.0-100.0) fL MCH 31.8 (25.0-35.0) pg MCHC 34.4 (31.0-37.0) g/dL RDW 14.1 (11.5-15.5) % Plt Count 243 (150-450) k/uL MPV 7.8 Neutrophils % 74 % Lymphocytes % 11 % Monocytes % 9 % Eosinophils % 2 % Basophils % 1 % Neutrophils # 9.7 H (1.3-7.7) k/uL Lymphocytes # 1.5 (1.0-4.8) k/uL Monocytes # 1.1 H (0-1.0) k/uL Eosinophils # 0.2 (0-0.7) k/uL Basophils # 0.1 (0-0.2) k/uL PT 12.4 (10.0-12.5) sec INR 1.2 H (<1.2) APTT 22.3 (22.0-30.0) sec Sodium 140 (137-145) mmol/L Potassium 4.8 (3.5-5.1) mmol/L Chloride 105 (98-107) mmol/L Carbon Dioxide 22 (22-30) mmol/L Anion Gap 13 mmol/L BUN 39 H (9-20) mg/dL Creatinine 1.56 H (0.66-1.25) mg/dL Est GFR (CKD-EPI)AfAm 53 (>60 ml/min/1.73 sqM) Est GFR (CKD-EPI)NonAf 46 (>60 ml/min/1.73 sqM) Glucose 115 H (74-99) mg/dL Calcium 9.4 (8.4-10.2) mg/dL Magnesium 1.0 L (1.6-2.3) mg/dL Total Bilirubin 0.8 (0.2-1.3) mg/dL AST 21 (17-59) U/L ALT 19 (4-49) U/L Alkaline Phosphatase 78 (38-126) U/L Troponin I (0.000-0.034) ng/mL NT-Pro-B Natriuret Pep 232 pg/mL Total Protein 7.2 (6.3-8.2) g/dL Albumin 4.3 (3.5-5.0) g/dL Influenza Type A (PCR) (Not Detectd) Influenza Type B (PCR) (Not Detectd) RSV (PCR) (Not Detectd) SARS-CoV-2 (PCR) (Not Detectd) 09/27/23 09/27/23 Range/Units 10:54 12:41 WBC (3.8-10.6) k/uL RBC (4.30-5.90) m/uL Hgb (13.0-17.5) gm/dL Hct (39.0-53.0) % MCV (80.0-100.0) fL MCH (25.0-35.0) pg MCHC (31.0-37.0) g/dL RDW (11.5-15.5) % Plt Count (150-450) k/uL MPV Neutrophils % % Lymphocytes % % Monocytes % % Eosinophils % % Basophils % % Neutrophils # (1.3-7.7) k/uL Lymphocytes # (1.0-4.8) k/uL Monocytes # (0-1.0) k/uL Eosinophils # (0-0.7) k/uL Basophils # (0-0.2) k/uL PT (10.0-12.5) sec INR (<1.2) APTT (22.0-30.0) sec Sodium (137-145) mmol/L Potassium (3.5-5.1) mmol/L Chloride (98-107) mmol/L Carbon Dioxide (22-30) mmol/L Anion Gap mmol/L BUN (9-20) mg/dL Creatinine (0.66-1.25) mg/dL Est GFR (CKD-EPI)AfAm (>60 ml/min/1.73 sqM) Est GFR (CKD-EPI)NonAf (>60 ml/min/1.73 sqM) Glucose (74-99) mg/dL Calcium (8.4-10.2) mg/dL Magnesium (1.6-2.3) mg/dL Total Bilirubin (0.2-1.3) mg/dL AST (17-59) U/L ALT (4-49) U/L Alkaline Phosphatase (38-126) U/L Troponin I <0.012 (0.000-0.034) ng/mL NT-Pro-B Natriuret Pep pg/mL Total Protein (6.3-8.2) g/dL Albumin (3.5-5.0) g/dL Influenza Type A (PCR) Not Detected (Not Detectd) Influenza Type B (PCR) Not Detected (Not Detectd) RSV (PCR) Not Detected (Not Detectd) SARS-CoV-2 (PCR) Not Detected (Not Detectd) - EKG Data EKG Comments: 12-lead Electrocardiogram Interpretation Note EKG was reviewed and interpreted by myself. 12-lead ECG performed at 1046 is interpreted by me as revealing normal sinus rhythm at a rate of 85 beats per minute. Suspected left axis deviation. CT interval is 207 ms, QRS duration is 131 ms, QTc is 406 ms. Interpretation made difficult as patient has a nerve stimulator which does interfere with the signal.. There were no obvious ST or T wave abnormalities to suggest myocardial ischemia or injury. R wave progression across the precordium was satisfactory. By my interpretation this EKG is non- diagnostic for acute ischemia. (Domingo Dutta) Disposition <Kan Parrish - Last Filed: 09/27/23 10:39> Is patient prescribed a controlled substance at d/c from ED?: No Time of Disposition: 13:55 <Domingo Dutta - Last Filed: 09/27/23 14:18> Clinical Impression: Tracheobronchitis, COPD (chronic obstructive pulmonary disease) Disposition: HOME SELF-CARE Condition: Good Instructions (If sedation given, give patient instructions): Acute Bronchitis (ED), COPD (Chronic Obstructive Pulmonary Disease) (ED) Prescriptions: predniSONE [Deltasone] 40 mg PO DAILY 5 Days #10 tab Albuterol Inhaler [Ventolin Hfa Inhaler] 1 - 2 puff INHALATION Q6H PRN #1 each PRN Reason: Dyspnea Azithromycin [Zithromax] 250 mg PO DAILY 4 Days #4 tab Referrals: Marty Garcia MD [Primary Care Provider] - 1-2 days
[2023-09-27 11:13] LABS: Basophils # (A) 0.1 k/uL (0-0.2); Basophils % (A) 1 %; Eosinophils # (A) 0.2 k/uL (0-0.7); Eosinophils % (A) 2 %; HCT 38.9 % (39.0-53.0); HGB 13.4 gm/dL (13.0-17.5); Lymphocytes # (A) 1.5 k/uL (1.0-4.8); Lymphocytes % (A) 11 %; MCH 31.8 pg (25.0-35.0); MCHC 34.4 g/dL (31.0-37.0); MCV 92.5 fL (80.0-100.0); Mean Platelet Volume 7.8; Monocytes # (A) 1.1 k/uL (0-1.0); Monocytes % (A) 9 %; Neutrophils # (A) 9.7 k/uL (1.3-7.7); Neutrophils % (A) 74 %; Platelet Count 243 k/uL (150-450); RDW 14.1 % (11.5-15.5); WBC 13.1 k/uL (3.8-10.6)
[2023-09-27 11:21] LABS: ALT 19 U/L (4-49); AST 21 U/L (17-59); African American GFR (CKD) 53 (>60 ml/min/1.73 sqM); Albumin 4.3 g/dL (3.5-5.0); Alkaline Phosphatase 78 U/L (38-126); Anion Gap 13 mmol/L; Blood Urea Nitrogen 39 mg/dL (9-20); Calcium 9.4 mg/dL (8.4-10.2); Carbon Dioxide 22 mmol/L (22-30); Chloride 105 mmol/L (98-107); Glucose 115 mg/dL (74-99); Non-African American GFR(CKD) 46 (>60 ml/min/1.73 sqM); Potassium 4.8 mmol/L (3.5-5.1); Sodium 140 mmol/L (137-145); Total Bilirubin 0.8 mg/dL (0.2-1.3); Total Protein 7.2 g/dL (6.3-8.2)
[2023-09-27 11:28] LABS: INR 1.2 (<1.2); Partial Thromboplastin Time 22.3 sec (22.0-30.0); Prothrombin Time 12.4 sec (10.0-12.5)
[2023-09-27 11:29] LABS: NT-Pro-B-Type Natriuretic Pept 232 pg/mL
--- NOTE | 2023-09-27 11:37 | XR ---
EXAMINATION TYPE: XR chest 2V DATE OF EXAM: 09/27/2023 11:10 AM CLINICAL INDICATION:Male, 67 years old with history of difficulty breathing; COMPARISON: Chest radiographs from 05/17/2023 TECHNIQUE: XR chest 2V Frontal and lateral views of the chest. FINDINGS: Lungs/Pleura: There is no evidence of pleural effusion, focal consolidation, or pneumothorax. Pulmonary vascularity: Unremarkable. Heart/mediastinum: Cardiomediastinal silhouette is unremarkable. Battery pack with leads in extending superiorly. Musculoskeletal: No acute osseous pathology. IMPRESSION: No acute cardiopulmonary disease/process.
[2023-09-27] MEDS: methylPREDNISolone SOD SUCCI 125 MG/2 ML VIAL IM ONE (12:47)
[2023-09-27] MEDS: LORazepam 2 MG/ML INJ IM STA (13:06)
[2023-09-27] MEDS: IPRATROPIUM-ALBUTEROL 3 ML NEB INHALATION STA (13:36)
[2023-09-27] MEDS: AZITHROMYCIN 500 MG TAB PO STA (13:56)
[2023-09-27 14:09] VITALS: TEMP 98
[2023-09-27 14:51] VITALS: BP 119/68; PULSE 81; RESP 16
== END 2023-09-27 14:12 | disposition home or self-care (01) ==
LOC: EC 10:20
DX: J44.9 Chronic obstructive pulmonary disease, unspecified (principal); J40 Bronchitis, not specified as acute or chronic; Z87.891 Personal history of nicotine dependence; Z88.1 Allergy status to other antibiotic agents
CPT/HCPCS: 36415; 94640; 93005; 83880; 80053; 83735; 84484; 85025; 85610; 85730; 87636; 71046; 99285; 96372; J2919

== ENCOUNTER → 2023-10-06 | Outpatient (CLI) | payer BC ==
--- NOTE | 2023-10-12 16:02 | CT ---
EXAMINATION TYPE: CT chest wo con CT DLP: 678 mGycm, Automated exposure control for dose reduction was used. DATE OF EXAM: 10/06/2023 1:50 PM COMPARISON: Chest CT 01/25/2012. CLINICAL INDICATION:Male, 67 years old with history of R06.02 SHORTNESS OF BREATH; PHH, cough, SOB TECHNIQUE: Multiple axial images were obtained through the chest. Sagittal and coronal reformats were created for review. Contrast used: mL of (None if empty) Oral contrast used: (None if empty) FINDINGS: LUNGS/ PLEURA: Subtle groundglass patchy pneumonia in the right middle lobe and the right left lower lobe. Another area in the medial inferior left lower lobe shows consolidation or bronchograms. AIRWAY: Patent and unremarkable. HEART: Size within normal limits. Moderately severe calcific coronary artery disease. MEDIASTINUM: No gross evidence of pathologically enlarged lymph nodes. A few shotty nodes are seen i n the mediastinum. VASCULATURE: No aortic aneurysm. MUSCULOSKELETAL: No acute osseous abnormalities SOFT TISSUES/LYMPH NODES: Unremarkable. LOWER NECK: No significant findings. UPPER ABDOMEN: No significant findings. IMPRESSION: Multifocal airspace disease/pneumonia. Clinical correlation advised Follow up recommendations for incidental pulmonary nodules, if there are any, are per [employer] [place] [employer] [employer] or [place] [employer]. https://radiopaedia.org/articles/rhqxpmykih-foekxol-mihooqjoj-dquszb-[email or web address]?lang=us
== END | disposition home or self-care (01) ==
LOC: RADCTMAIN 13:17
PROVIDERS: ATTEND Family Medicine
DX: J18.9 Pneumonia, unspecified organism (principal)
CPT/HCPCS: 71250

== ENCOUNTER → 2024-02-07 | Outpatient (CLI) | payer BC ==
[2024-02-07 11:22] LABS: African American GFR (CKD) 61 (>60 ml/min/1.73 sqM); Blood Urea Nitrogen 26 mg/dL (9-20); Non-African American GFR(CKD) 53 (>60 ml/min/1.73 sqM)
--- NOTE | 2024-02-07 12:09 | CT ---
EXAMINATION TYPE: CT chest w con DATE OF EXAM: 02/07/2024 COMPARISON: 10/06/2023 HISTORY: Chronic cough, years of exposure to asbestos. CT DLP: 761 mGycm Automated exposure control for dose reduction was used. TECHNIQUE: CT scan of the chest is performed with IV Contrast, patient injected with 80 mL of Isovue 300. MIP I mages are created on CT scanner and reviewed. 3D reconstructed images are created on an independent w orkstation and reviewed. FINDINGS: LUNGS: Groundglass changes left lower lobe favor atelectasis over pneumonia. Mild emphysematous rodas es with no evidence of pulmonary edema. Subpleural right upper lobe 1 mm pulmonary micronodule has a benign appearance. MEDIASTINUM: There are no greater than 1 cm hilar or mediastinal lymph nodes. No pericardial effusi on is seen. Coronary artery calcification. Atherosclerotic changes of the aorta. Implantable subcuta neous device incidentally noted. OTHER: Underlying hepatic steatosis. Degenerative changes of the spine. Partial inclusion and field- of-view is abdominal aorta measuring 3.4 cm compatible aneurysmal dilation. IMPRESSION: 1. COPD with minimal groundglass changes left lower lobe favor atelectasis over pneumonitis, correlat e clinically. 2. There appears to be a abdominal aortic aneurysm measuring 3.2 cm only partially included in the fi eld-of-view below the level the renal arteries correlate clinically. Follow-up recommendations for incidental pulmonary nodules are per [employer] [place] or [employer].
== END | disposition home or self-care (01) ==
LOC: RADCTMAIN 10:19
PROVIDERS: ATTEND Internal Medicine
DX: R05.3 Chronic cough
CPT/HCPCS: 36415; 71260; 82565; 84520

== ENCOUNTER → 2024-09-07 | Outpatient (CLI) | payer BC | END | disposition home or self-care (01) | LOC: LABWHC1 09:10 | PROVIDERS: ATTEND Psychiatry & Neurology Neurology | DX: G70.00 Myasthenia gravis without (acute) exacerbation (principal) | CPT/HCPCS: 36415 ==